=== PATIENT | female | born 1970 | race Caucasian/White ===

== ENCOUNTER 2022-05-10 14:32 | Emergency (ER) | payer MEDICAID, SELFPAY ==
[2022-05-10 14:41] VITALS: BP 152/102; PULSE 110; RESP 18; TEMP 36.3; O2SAT 97; BMI 24.0
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
== END 2022-05-10 15:30 | disposition home or self-care (01) ==
LOC: ED 15:28
PROVIDERS: Emergency Provider Family Medicine; PCP Family Medicine
DX: M25.511 Pain in right shoulder (principal); M25.571 Pain in right ankle and joints of right foot; M54.2 Cervicalgia
CPT/HCPCS: 99283; 99284

== ENCOUNTER 2022-07-26 17:41 | Emergency (ER) | payer MEDICAID, SELFPAY ==
[2022-07-26 17:49] VITALS: BP 125/87; PULSE 100; RESP 18; TEMP 35.8; O2SAT 98; BMI 27.3
--- NOTE | 2022-07-26 21:10 | ED.GENADULT ---
HPI - General Adult General Date Seen: 07/26/22 Chief complaint: Back Injury/Pain Stated complaint: Back Pain Time Seen by Provider: 07/26/22 18:03 Source: patient History of Present Illness HPI narrative: Patient is a 51-year-old woman with a history of chronic neck pain and previous chronic opioids who presents with low back pain which started a couple of hours prior to presentation. She says she was lifting up some towels when she developed pain and spasm in her low back, just to the right of her spine. She does not have any new radicular symptoms, she says she always has pain and other symptoms in her legs but that is due to her neck. She says she is due to meet with her spine surgeon on Wednesday because she has to have another surgery on her neck. She says that she took ibuprofen and Tylenol and Robaxin at home and also has lidocaine patches and Biofreeze at home and none of these were helpful for her. She is tearful, she says that none of these measures work and she is not going to be able to sleep tonight. She told the nurse that it was painful to void, but she specifically says that this is not a urinary related problem, she says she has no dysuria it just is painful to sit on the toilet to go to the bathroom, it makes her back hurt worse. Related Data Home Medications Medication Instructions Recorded Confirmed bupropion HCl 150 mg tablet,12 hr 150 mg PO BID 05/10/22 07/26/22 sustained-release epinephrine 0.3 mg/0.3 mL 05/10/22 injection, auto-injector methocarbamol 750 mg tablet 750 mg PO QID 05/10/22 07/26/22 multivitamin 1 tab PO DAILY 05/10/22 07/26/22 trazodone 100 mg tablet 100 mg PO HS 05/10/22 07/26/22 venlafaxine 150 mg 150 mg PO DAILY 05/10/22 07/26/22 capsule,extended release 24 hr venlafaxine 75 mg capsule,extended 75 mg PO DAILY 05/10/22 07/26/22 release 24 hr Allergies Allergy/AdvReac Type Severity Reaction Status Date / Time bee pollen Allergy Verified 07/26/22 18:00 Review of Systems Status of ROS: Reports: 10 or more systems reviewed and unremarkable except as noted in History and below [facility] Medical History ADHD Anxiety Cervical radiculopathy at C7 Chronic pain Depression History of alcohol abuse Migraine PTSD (post-traumatic stress disorder) Tobacco use Surgical History History of appendectomy History of cervical discectomy History of fusion of cervical spine History of hysterectomy Social History Narrative: She smokes cigarettes. She drinks 6 alcoholic beverages per week Smoking Status: Current every day smoker How often do you have a drink containing alcohol: never AUDIT-C Alcohol total score: 0 Non-prescribed substance use: denies use Exam Narrative: Exam Narrative: Vital signs as noted above. In general, an alert, nontoxic woman. Ambulatory. Head: Normocephalic, atraumatic. Eyes: Pupils are equal reactive. Extraocular movements are full. Conjunctivae are normal. ENT: Mucous membranes are moist. Throat is normal. Neck: Supple without lymphadenopathy. Heart: Regular rate and rhythm. No murmur or rub. Lungs: Clear bilaterally. No increased work of breathing, crackles or wheezes. Abdomen: Soft and nontender. No organomegaly. Back: Some tenderness in the paraspinal musculature in the right lumbar region. Extremities: Well perfused. No edema. No calf tenderness. Pulses intact. Neurologic: Patient is alert and oriented to person and place. Speech is fluent. Face is symmetric. Moves all extremities equally. Strength is 5 5 in bilateral lower extremities, sensation is intact to light touch. Gait stable. Affect: Tearful. Skin: Warm and dry. Well perfused. Const: Vital Signs, click to edit/add: Vital Signs - 24 hr 07/26/22 17:49 Temperature 96.5 F L Pulse Rate [Right Pulse Oximeter] 100 Respiratory Rate 18 Blood Pressure [Ri ght Upper Arm] 125/87 Pulse Oximetry 98 Oxygen Delivery Me thod Room Air Documenting provider has reviewed patient's vital signs: yes Course Course Hospital Course: Patient stated that her primary concern was that something might be very wrong with her back given the all the problems that she has had with her cervical spine. I did review with her that I think this is related to muscle spasm, I am not at this point concerned about something more serious such as a disc herniation given that pain is largely localized to the musculature in the right lumbar region, she does not have any radicular symptoms and does not have any neurologic changes. I recommended conservative measures including all of the things that she already has at home. She is adamant that none of these helped. I asked her what she was hoping to achieve out of seven's visit to the ER, and that she needs something different for pain. I reviewed with her that my normal management for lumbar strain is ibuprofen, Tylenol, muscle relaxers, ice, massage, and topical measures such as Biofreeze with lidocaine patches. However, given that she says she has tried all these without relief, and upon review of the prescription monitoring database shows no recent prescriptions for narcotics, I am giving her for oxycodone. I have explained to her that if she and her primary doctor have an arrangement where in the use narcotics for muscular back pain she can discuss that further with her regular clinic. As narcotics are not part of my normal treatment plan, I am not willing to provide any further from the emergency department. Follow-up with spine surgeon as planned this week, primary care as needed for further pain management. Vital Signs Vital signs: Initial Vital Signs Temperature 96.5 F L 07/26/22 17:49 Temperature Source Temporal Artery Scan 07/26/22 17:49 Pulse Rate 100 07/26/22 17:49 Respiratory Rate 18 07/26/22 17:49 Blood Pressure 125/87 07/26/22 17:49 Blood Pressure Mean 99 07/26/22 17:49 Blood Pressure Position Sitting 07/26/22 17:49 Pulse Oximetry 98 07/26/22 17:49 Oxygen Delivery Method 07/26/22 17:49 Vital Signs Temperature 96.5 F L 07/26/22 17:49 Pulse Rate 100 07/26/22 17:49 Respiratory Rate 18 07/26/22 17:49 Blood Pressure 125/87 07/26/22 17:49 Pulse Oximetry 98 07/26/22 17:49 Oxygen Delivery Method 07/26/22 17:49 Temperature 96.5 F L 07/26/22 17:49 Pulse Rate 100 07/26/22 17:49 Respiratory Rate 18 07/26/22 17:49 Blood Pressure 125/87 07/26/22 17:49 Pulse Oximetry 98 07/26/22 17:49 Oxygen Delivery Method 07/26/22 17:49 Discharge Plan Discharge Clinical Impression: Strain of lumbar region Patient Disposition: Home, Self-Care Condition: Stable Instructions: Back Pain (ED) Additional Instructions: Continue current medications. Oxycodone if needed tonight. Follow-up with your spine surgeon as planned. If you need further pain management for your low back, talk with your regular doctor. Return for new weakness or numbness, bowel or bladder changes. Prescriptions: No Action bupropion HCl 150 mg tablet sustained-release 12 hr 150 mg PO BID venlafaxine 75 mg capsule,extended release 24hr 75 mg PO DAILY venlafaxine 150 mg capsule,extended release 24hr 150 mg PO DAILY methocarbamol 750 mg tablet 750 mg PO QID trazodone 100 mg tablet 100 mg PO HS epinephrine 0.3 mg/0.3 mL auto-injector multivitamin Tablet 1 tab PO DAILY Follow Up/Referrals: Becky Laughlin MD [Primary Care Provider] - Stand Alone Forms: [facility] Info Instructions
== END 2022-07-26 18:42 | disposition home or self-care (01) ==
PROVIDERS: Emergency Provider Emergency Medicine; PCP Family Medicine
DX: S39.012A Strain of muscle, fascia and tendon of lower back, initial encounter (principal); X50.0XXA Overexertion from strenuous movement or load, initial encounter
CPT/HCPCS: 99283; 99284

== ENCOUNTER 2022-08-01 22:22 | Emergency (ER) | payer MEDICAID, SELFPAY ==
[2022-08-01 22:39] VITALS: BP 140/91; PULSE 101; RESP 20; TEMP 36.7; O2SAT 95; BMI 24.0
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
--- OUTSIDE RECORDS SUMMARY | 2022-08-01 23:23 | XMS_ITS | Clinical Summary ---
:1970 Author Organization [employer] [facility] [place] [address] Care Team Providers Name Role Phone Becky Laughlin MD Primary Care Provider Allergies Active Allergy Reactions Severity Noted Date Comments Venom-Honey Bee Anaphylaxis High 09/02/2012 Itraconazole Rash 06/20/2010 Medications Medication Sig Dispensed Refills Start End Date Status Date EPINEPHRINE Inject 0 Active (EPIPEN 2-JASON IM) intramuscular each time if needed. buPROPion Take 1 Tablet 270 Tablet 0 Activ e (WELLBUTRIN) 100 (100 mg) by mouth 2 mg three times tabletIndications daily. Further : Major refills will be depressive prescribed during disorder, an appointment recurrent, moderate (HC) venlafaxine Take 1 Capsule 90 Capsule 3 Ac tive (EFFEXOR XR) 150 (150 mg) by mouth 2 mg once daily with Extended-Release evening meal. capsuleIndication s: Major depressive disorder, recurrent, moderate (HC), Posttraumatic stress disorder, Generalized anxiety disorder venlafaxine Take 1 Capsule 90 Capsule 3 Ac tive (EFFEXOR XR) 75 (75 mg) by mouth 2 mg cp24 once daily with a Extended-Release meal. capsuleIndication s: Major depressive disorder, recurrent, moderate (HC), Posttraumatic stress disorder, Generalized anxiety disorder traZODone Take 1 Tablet 90 Tablet 3 Active (DESYREL) 100 mg (100 mg) by mouth 2 tabletIndications at bedtime if : Major needed for Sleep. depressive disorder, recurrent, moderate (HC), Posttraumatic stress disorder, Generalized anxiety disorder methocarbamoL Take 1 Tablet 120 Tablet 0 A ctive (ROBAXIN) 750 mg (750 mg) by mouth 2 tabletIndications four times daily. : Cervical radiculopathy at C7, Chronic pain syndrome, Tension vascular headache predniSONE 0 Active (DELTASONE) 20 mg 2 tablet naloxone (Narcan) Inhale 1 [place] 2 Each 0 0 Discontinued 4 mg/actuation into affected 1 ( *Med nasal nostril(s) each comp lete/Regime sprayIndications: time if needed n Opioid use for Patient Diff co mplete/Level To Arouse or Resp of care change) Rate < 8 / min. Additional doses may be given every 2 to 3 minutes until emergency medical assistance arrives. multivitamin Take 1 Tablet by 0 07/31/20 Discontinued (MVI) tablet mouth once daily. 2 22 (*Med complete/R egime n complete/L evel of care ch jeimy) methocarbamoL Take 1 Tablet 120 Tablet 0 07/17/20 D iscontinued (ROBAXIN) 750 mg (750 mg) by mouth 2 22 (Reorder tabletIndications four times daily. (E-cancel not : Cervical sent)) radiculopathy at C7, Chronic pain syndrome, Tension vascular headache Active Problems Problem Noted Date Posttraumatic stress disorder 05/05/2022 Hyperhidrosis 04/24/2022 Continuous cannabis use which she says helps her neck and back pain 04/24/2022 Alcohol use disorder, mild, abuse 04/24/2022 Controlled substance agreement signed 07/30/2021 Chronic pain syndrome 07/19/2019 Hypocalcemia 04/03/2019 Open bimalleolar fracture, right, type I or II, with r outine healing, 04/01/2019 subsequent encounter Overview: Last Assessment & Plan: 48 y.o. female 9 weeks s/p I&D, ORIF rig ht ankle. Patient stable and doing well. -WBAT RLE -Wean from crutches as tolerated -Updated physical therapy orders -Work on ROM of the right ankle -Rest, ice, elevate, and OTC pain medica tion as needed -Follow up in 6 weeks Frequent PVCs 06/09/2018 Overview: Status post ablation for PVCs arising fr om a force deep to the anterior septal right ventricular outflow tract by Dr. Degroot March 2018. January 2021 monitor 6.8% PVC burden. Has been on Toprol XL 25 mg daily. Does not want additional medications 03/19/2021 status post repeat ablation for 2 separate PVCs from the LV. Toprol XL reduced to 12.5 mg PO daily S/P cervical spinal fusion 12/09/2017 Controlled substance agreement signed 04/28/2017 Overview: [facility] 04/26/17 Rashmi Mckeon, A................04/28/2017 3 :11 PM 90 day reminder has been signed by pt WILMAN II (vulvar intraepithelial neoplasia II) 6 Cervical radiculopathy at C7 08/29/2012 Major depressive disorder, recurrent, moderate 010 Tobacco use disorder 03/14/2008 Migraine, unspecified, without mention of intractable migraine without 03/14/2008 mention of status migrainosus History of attention deficit hyperactivity disorder (A DHD) 01/31/2007 Generalized anxiety disorder 01/31/2007 Resolved Problems Problem Noted Date Resolved Date Pain medication agreement 10/30/2013 04/28/2017 Overview: Pain contract initiated with Rashmi ayala NP at [facility] on 10/25/2013. Tierra Bernal .................... 10/30 4:09 PM Major depressive disorder, recurrent episode, in partial or 01/31/2007 05/05/2022 unspecified remission Encounters Date Type Specialty Care Team Description 07/31/2022 Office Visit Ashley Hinojosa Follow Up (EM G, CT ) Randi Donahue Eric John, MATEUS 07/30/2022 Travel 07/22/2022 Orders Only Clifton Bailey, <No scans attached> MATEUS 07/22/2022 Telephone Clifton Bailey, EMG resul ts PA 07/17/2022 Telemedicine Josh Mtz MD Failed Katie ointment 07/17/2022 Telephone Nelli Grayson, Refill Req uest HELICOPTER REPAIRER (Methocarbamol 750mg ) 07/16/2022 Orders Only Scanner <No scans attac hed> 07/01/2022 Telephone Clifton Bailey PA 06/29/2022 Telemedicine Jose Daniel Mckeon, Telehealt h; Failed PhD, LP Appointment 06/19/2022 Hospital Encounter Clifton Bailey, Pse udoarthrosis of PA cervical spine, initial encounter (HC) 06/19/2022 Telemedicine Josh Mtz MD Telehealth (); Medication Ana gement (Effexor and Tr azodone from PCP) 06/18/2022 Telemedicine Jose Daniel Mckeon, Psycholog ical Testing; PhD, LP Telehealth 06/18/2022 Travel 06/12/2022 Procedure Only Tyrese Templeton Procedure (ONB & TPIs) MD Cathie 06/12/2022 Hospital Encounter Tyrese Templeton MD 06/12/2022 Travel 06/12/2022 Telephone Josh Mtz MD Late Melvin reddy Appointment 06/11/2022 Telemedicine Josh Mtz MD Late Cance l Appointment 06/10/2022 Travel 06/09/2022 Telephone Nelli Grayson, Refill Req uest HELICOPTER REPAIRER (Methocarbamol 750mg ) 06/09/2022 Orders Only Clifton Bailey, <No scans attached> PA 06/04/2022 Ancillary Procedure 06/04/2022 Ancillary Procedure 06/04/2022 Telephone Clifton Bailey, Follow Up PA 06/03/2022 Office Visit Clifton Bailey, Consult ( Spine ) PA 06/03/2022 Travel 06/02/2022 Travel 05/26/2022 Telephone Ashley Hinojosa Questions Godfrey, Randi 05/26/2022 Telephone Ashley Hinojosa Concerns [facility] Procedure Only SaTyrese monteiro Procedure; Right Cathie MD shoulder,ONB wi th sedation 05/19/2022 Hospital Encounter Tyrese Templeton MD 05/19/2022 Telephone Tyrese Templeton Prior Author yana Brand MD (Patient wants to schedule should er, ONB, and TPI injecti ons. Please advise. ) 05/19/2022 Travel 05/18/2022 Office Visit Diane Paul Shoulder Pain/ problem MD Demetrice (HELICOPTER REPAIRER, right shou lder) 05/18/2022 Travel 05/05/2022 Telemedicine Josh Mtz MD Medication Management (Per METAL BONDING ASSEMBLER Addera ll XR 20mg #31 last sold ); Telehealth 05/01/2022 Telemedicine Jose Daniel Mckeon, Telehealt h; Mental Health PhD, LP Intake 05/01/2022 E-Visit Mychart, Provider 05/01/2022 E-Visit Mychart, Provider 05/01/2022 Travel from Last 3 Months Immunizations Name Administration Dates Next Due Hepatitis B (Peds) 12/14/2002, 07/06/2002, 05/19/2002 Influenza A (H1N1), Live Intranasal 09/17/2009 Influenza Virus, Unspecified 09/23/2019, 07/26/2012, 011, 08/25/2010, 11/23/2008 Influenza, IIV3 (Age 6-35 mos) 07/26/2012, 07/29/2011 Influenza, IIV3 (Age >=3 years) 10/02/2010 Influenza, IIV4 11/26/2017, 11/18/2016 Influenza, Injectable, Mdck, 09/23/2019 Quadrivalent, W/preservative Influenza,LAIV4 Live Intranasal 07/12/2013 (Flumist) Td (Age >=7 Years) 12/02/2010 Td, Preservative Free (age >= 7 08/16/2002 Years) Tdap 03/31/2019, 12/03/2010 Family History Medical History Relation Name Comments Good Health Father Good Health Mother Cancer-breast Other maternal and pat ernal cousins Other Other paternal cousin s with ADD, anxiety and depression Cancer-breast Paternal Aunt Cancer-breast Paternal Grandmother Relation Name Status Comments Father Mother Other Paternal Aunt Paternal Grandmother Social History Tobacco Use Types Packs/Day Years Used Date Current Every Day Smoker Cigarettes 1 Edi t: 12/10/2015 Smokeless Tobacco: Never Used Tobacco Cessation: Ready to Quit: No; Co unseling Given: Yes Comments: half to a full pack a day Alcohol Use Standard Drinks/Week Comments Yes 6 (1 standard drink = 0.6 oz pure alcoho l) occ. Alcohol Habits Answer Date Recorded How often do you have a drink containing alcohol? 2-3 times a week 08/03/2019 How many drinks containing alcohol do you have on a 1 or 2 08/03/2019 typical day when you are drinking? How often do you have six or more drinks on one Never 08/03/2019 occasion? Comment: occ. 06/03/2022 Education Answer Date Recorded What is the highest level of school Associate degree: juan mclaughlin, 04/24/2022 you have completed or the highest technical, or vocational p lise degree you have received? 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 Obstetrics History Para Term AB IAB SAB Ectopic Multiple Living Live Births 1 1 1 1 Date Outcome GA Total Labor/2nd/3rd Weight Sex Delivery Anes PTL Pilar A 1 A5 Name Clin Labor Term Last Filed Vital Signs Vital Sign Reading Time Taken Comments Blood Pressure 132/96 07/31/2022 2:38 PM CDT Pulse 94 07/31/2022 2:38 PM CDT Temperature 36.6 ??C (97.9 ??F) 07/31/2022 2:38 PM CDT Respiratory Rate 16 06/12/2022 12:59 PM CDT Oxygen Saturation 98% 06/12/2022 12:59 PM CDT Inhaled Oxygen Concentration - - Weight 63.5 kg (140 lb) 07/31/2022 2:38 PM CDT Height 162.6 cm (5' 4) 07/31/2022 2:38 PM CDT Body Mass Index 24.03 07/31/2022 2:38 PM CDT Plan of Treatment Health Maintenance Due Date Last Done Comments COVID-19 vaccine series (#1) 04/18/1973 Pneumococcal series for age 19-64 1978 (1 - PCV) Hepatitis C screening for age 0110/19/1990 18-79 Colonoscopy through age 75 2017 Influenza for age 9-49 06/11/2022 09/23/2019, 09/23/2019, 11/26/2017, Additional history exists Mammogram for age 45-75 12/11/2022 12/11/2021 Depression screening for age 12+ 06/19/2023 06/19/2022, 05/2022, 06/12/2022, Additional history exists BMI (ht and wt on same day) for 07/31/2023 07/31/2022, 05/12, age 18+ 10/24/2021, Additional history exists Lipids for age 45-75 10/24/2026 10/24/2021 Tetanus booster 03/31/2029 03/31/2019, 12/03/2010, 12/02/2010, Additional history exists Tdap Completed 03/31/2019, 12/03/2010 Medical Devices Implanted Type Area Web Site Project Manager Device Shelf Model / Identifier Expiration Serial / Date Lot Screw Slf Drilling 4.0x13 Debi - [id number] N/A: Cervical [id number] / Implanted: Qty: 4 on 09/02/2012 by Ashley Hinojosa MBC at [facility] Vertebrae / Procedures Procedure Name Priority Date/Time Associated Diagnosis Comme nts EMG Routine 07/16/2022 12:00 Paresthesias Results for this AM CDT procedure are i n the results section. SCAN-ELECTROMYOGRA 07/16/2022 12:00 Resul ts for this M EMG AM CDT procedure are i n the results section. CT SPINE CERVICAL Routine 06/19/2022 12:27 Pseudoarthrosis of Results for this WO PM CDT cervical spine, initial proc edure are in encounter (HC) the results section. XR SPINE CERVICAL [place] 06/04/2022 8:21 AM Cervical myelopat hy Results for this 4 OR 5 VIEWS CDT (HC) procedure are i n the results section. MR SPINE CERVICAL [place] 06/04/2022 7:55 AM Cervical myelopat hy Results for this WO CDT (HC) procedure are i n the results section. [employer] [facility] Routine 05/19/2022 7:21 AM IMAGE STORAGE CDT from Last 3 Months Results SCAN-ELECTROMYOGRAM EMG (07/16/2022 12:00 AM CDT) Narrative This result has an attachment that is no t available. Scanner OTHER EMG (07/16/2022 12:00 AM CDT) Narrative This result has an attachment that is no t available. [facility] ORD CT SPINE CERVICAL WO (06/19/2022 12:27 PM CDT) Anatomical Region Laterality Modality CERVICAL SPINE, NECK, Spine Computed Aaron ography Specimen (Source) Anatomical Collection Method Collection Time Re ceived Time Location / / Volume Laterality 06/19/2022 12:52 PM CDT Narrative 06/19/2022 12:52 PM CDT For Patients: ??As a result of the Cures Act, medical imaging exams and procedure report s are released immediately into your [facility] medical record. ??You may view this report before your referring provider. ??If you have questions, please contact your health care provider. 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 Comparison: Cervical spine x-ray and MRI 06/04/2022 Findings: Neutral: Straightening of the normal alyx dosis. Minimal grade 1 retrolisthesis at C4-5. Flexion: Minimal grade 1 anterolisthesis at C3-4 and C4-5. Extension: Minimal retrolisthesis at C4- 5. Postop changes: Interbody fusion at C5-6 , with anterior plate and screw fixation and interbody spacer at C6-7. Fixation hardware is unremarkable. No ev idence of acute fracture. Mild degenerative disc changes without e vidence of critical spinal canal stenosis. Uncovertebral/facet arthropathy contribute to likely moderate right foraminal stenosis at C5-6. No suspicious findings in the prevertebr al or paraspinal soft tissues. Included posterior fossa is unremarkable . Centrilobular emphysematous changes are noted in the included lungs. Impression: 1. Upon cervical flexion, minimal grade 1 anterolisthesis at C3-4, resolving in neutral/extension. 2. Straightening of the normal cervical lordosis, with subtle grade 1 retrolisthesis at C4-5, unchanged with flexion/extension. 3. Anterior cervical spinal fusion flores es. No evidence of acute osseous abnormality. 4. Cervical spondylosis with moderate ri ght foraminal stenosis at C5-6. Please note that all CT scans at this [facility] use dose modulation, iterative reconstruction, and/or weight-based dosing when appropriate to reduce radiation dose to as low as reasonably achievable. Dictated by Vera Duque MD @ 06/19/2022 12 :52:47 PM (Electronically Signed) Procedure Note Vera Duque, DO - 06/19/2022Forma tting of this note might be different from the original. For Patients: As a result of the ntury Cures Act, medical imaging exams and procedure reports are released immediately into your electronic medical record. You may view this report before your referring provider. If you have questions, please contact [facility] health care provider. 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 Comparison: Cervical spine x-ray and MRI 06/04/2022 Findings: Neutral: Straightening of the normal alyx dosis. Minimal grade 1 retrolisthesis at C4-5. Flexion: Minimal grade 1 anterolisthesis at C3-4 and C4-5. Extension: Minimal retrolisthesis at C4- 5. Postop changes: Interbody fusion at C5-6 , with anterior plate and screw fixation and interbody spacer at C6-7. Fixation hardware is unremarkable. No ev idence of acute fracture. Mild degenerative disc changes without e vidence of critical spinal canal stenosis. Uncovertebral/facet arthropathy contribute to likely moderate right foraminal stenosis at C5-6. No suspicious findings in the prevertebr al or paraspinal soft tissues. Included posterior fossa is unremarkable . Centrilobular emphysematous changes are noted in the included lungs. Impression: 1. Upon cervical flexion, minimal grade 1 anterolisthesis at C3-4, resolving in neutral/extension. 2. Straightening of the normal cervical lordosis, with subtle grade 1 retrolisthesis at C4-5, unchanged with flexion/extension. 3. Anterior cervical spinal fusion flores es. No evidence of acute osseous abnormality. 4. Cervical spondylosis with moderate ri ght foraminal stenosis at C5-6. Please note that all CT scans at this [facility] use dose modulation, iterative reconstruction, and/or weight-based dosing when appropriate to reduce radiation dose to as low as reasonably achievable. Dictated by Vera Duque MD @ 06/19/2022 12 :52:47 PM (Electronically Signed) [facility] CT XR SPINE CERVICAL 4 OR 5 VIEWS (06/04/2022 8:21 AM CDT) Anatomical Region Laterality Modality Spine, CERVICAL SPINE Computed Radiograp hy Specimen (Source) Anatomical Collection Method Collection Time Re ceived Time Location / / Volume Laterality 06/04/2022 8:21 AM CDT Impressions 06/04/2022 8:49 AM CDT Straightening of the usual cervical lordosis with otherwise normal alignment. No spondylolisthesis on flexion or extension views. Interbody fusion device at C5- C6 and C6-C7 with anterior fixation plate at C6-C7. Solid osseous fusion of the C6 -C7 disc space. Mild disc space narrowing at C3-C4 and C4-C5 with marginal osteophytes. The prevertebral soft tissues and visualized lung apices are unremarkable. Narrative 06/04/2022 8:49 AM CDT For Patients: As a result of the Cures Act, medical imaging exams and procedure reports are released immediately into your [facility] medical record. You may view this report before your referring provider. If you have questions, please contact your health care provider. EXAM: XR SPINE CERVICAL 4 OR 5 VIEWS LOCATION: [facility] DATE/TIME: 06/04/2022 8:21 AM INDICATION: Cervical Myelopathy (hc). COMPARISON: MRI cervical spine 2. TECHNIQUE: CR Cervical Spine. Procedure Note Pawan Starsk MD - 06/04/20 22 For Patients: As a result of the Cures Act, medical imaging exams and procedure reports are released immediately into your electronic medical record. You may view this report before your referring provider. If you have questions, please contact [facility] health care provider. EXAM: XR SPINE CERVICAL 4 OR 5 VIEWS LOCATION: [facility] DATE/TIME: 06/04/2022 8:21 AM INDICATION: Cervical Myelopathy (hc). COMPARISON: MRI cervical spine 2. TECHNIQUE: CR Cervical Spine. IMPRESSION: Straightening of the usual cervical lord osis with otherwise normal alignment. No spondylolisthesis on flexion or extension views. Interbody fusion device at C5- C6 and C6-C7 with anterior fixation plate at C6-C7. Solid osseous fusion of the C6-C7 disc s pace. Mild disc space narrowing at C3-C4 and C4-C5 with marginal osteophytes. The prevertebral soft tissues and visualized lung apices are unremarkable. [facility] MR SPINE CERVICAL WO CONTRAST (06/04/2022 7:55 AM CDT) Anatomical Region Laterality Modality Spine, CERVICAL SPINE Magnetic Resonance Specimen (Source) Anatomical Collection Method Collection Time Re ceived Time Location / / Volume Laterality 06/04/2022 7:55 AM CDT Impressions 06/04/2022 9:41 AM CDT 1. ??Slight progression of degenerative changes in the cervical spine above the existing anterior interbody fusion levels C5-C7, with hardware C6-C7 anteriorly. 2. ??Interval development of very low-gr tom 1 mm retrolisthesis C3-C4 and disc bulging with very shallow central disc extrusion at this level contributes to mild spinal canal compromise without foraminal narrowing. 3. ??Decreased size of C4-C5 disc hernia tion from prior study without spinal canal narrowing at this level. 4. ??There is no severe spinal stenosis or severe foraminal narrowing. 5. ??No abnormal intramedullary signal. 6. ??Please see above for details and fu ll description. Narrative 06/04/2022 9:41 AM CDT For Patients: As a result of the 21st Century Cures Act, medical imaging exams and procedure reports are released immediately into your [facility] medical record. You may view this report before your referring provider. If you have questions, please contact your health care provider. EXAM: MR SPINE CERVICAL WO LOCATION: [facility] DATE/TIME: 06/04/2022 7:55 AM INDICATION: Cervical myelopathy (hc). COMPARISON: 12/12/13 MRI, 11/24/2013 plain film imaging. TECHNIQUE: MRI Cervical Spine without IV contrast. FINDINGS: Satisfactory vertebral body height. 1 mm retrolisthesis suggested C3-C4 new from previous study. No high-grade subluxation. Otherwise satisfactory alignment. Redemonstration of postoperative changes of anterior fusion with interbody fusions C 5-C6, C6-C7, as well as plate/body screw fixation anteriorly with associated artifact at the C6-C7 level. No abnormal intramedullary signal. No co rd expansive changes are noted. Posterior fossa structures shows no acute abnormality. Satisfactory position of the cerebellar tonsils. Chronic ischemic change ce ntral pontine deep white matter. Vertebr obasilar flow voids are intact. Sella and sphenoid sinus are unremarkable. No evidence for blood products in the posterior fossa or spinal canal with some mineral ization in the region of the pineal rece ss. No evidence for mass, adenopathy or focal fluid collections within the neck soft tissues. Edger Tailer nonenlarged level II lymph nodes up to 12-13 mm. Mini mal fluid left mastoid air cells inferio rly. Minimal scarring/atelectasis in the upper lungs. Craniovertebral junction and C1-C2: Mild degenerative changes without canal stenosis. C2-C3: Normal disc height. No herniation . Normal facets. No spinal canal or neural foraminal stenosis. C3-C4: Low-grade retrolisthesis suggeste d new from previous study with generalized disc bulging and shallow broad-based central disc extrusion with subtle focal annular tear/disruption in the right para central zone. Mild spinal stenosis is pr esent without foraminal compromise. Facet joints are normal. C4-C5: Moderate loss of disc height. Gen eralized disc bulge. Mild flattening of the ventral thecal sac and shallow broad-based central disc protrusion with annular disruption. No spinal stenosis. No for aminal compromise. Facet joints are sati sfactory. C5-C6: Fusion changes anteriorly. Osteop hytes right foraminal and far lateral zone with mild right foraminal stenosis suggested. No spinal canal or left-sided foraminal narrowing. Facet joints are minimally hypertrophic. C6-C7: Fusion changes anteriorly. Osteop hytes in the central and right paracentral zone. No canal stenosis or foraminal narrowing. Satisfactory facet joint appearance. C7-T1: Normal disc height. No herniation . Normal facets. No spinal canal or neural foraminal stenosis. Procedure Note Lars Cha MD - 06/04/2022For matting of this note might be different from the original. For Patients: As a result of the ntury Cures Act, medical imaging exams and procedure reports are released immediately into your electronic medical record. You may view this report before your referring provider. If you have questions, please contact yo health care provider. EXAM: MR SPINE CERVICAL WO LOCATION: [facility] DATE/TIME: 06/04/2022 7:55 AM INDICATION: Cervical myelopathy (hc). COMPARISON: 12/12/13 MRI, 11/24/2013 plain film imaging. TECHNIQUE: MRI Cervical Spine without IV contrast. FINDINGS: Satisfactory vertebral body height. 1 mm retrolisthesis suggested C3-C4 new from previous study. No high-grade subluxation. Otherwise satisfactory alignment. Redemonstration of postoperative changes of anterior fusion with interbody fusions C5-C6, C6-C7, as well as plate/body screw fixation anteriorly with associated artifact at the C6-C7 level. No abnormal intramedullary signal. No co rd expansive changes are noted. Posterior fossa structures shows no acute abnormality. Satisfactory position of the cerebellar tonsils. Chronic ischemic change central pontine deep white matter. Vertebrobasil ar flow voids are intact. Sella and sphenoid sinus are unremarkable. No evidence for blood products in the posterior fossa or spinal canal with some mineralization in the region of the pineal recess. No evidence for mass, adenopathy or focal fluid collections within the neck soft tissues. Edger Tailer nonenlarged level II lymph nodes up to 12-13 mm. Minimal fluid left mastoid air cells inferiorly. Minimal scarring/atelectasis in the upper lungs. Craniovertebral junction and C1-C2: Mild degenerative changes without canal stenosis. C2-C3: Normal disc height. No herniation . Normal facets. No spinal canal or neural foraminal stenosis. C3-C4: Low-grade retrolisthesis suggeste d new from previous study with generalized disc bulging and shallow broad-based central disc extrusion with subtle focal annular tear/disruption in the right paracentral zone. Mild spinal stenosis is present without foraminal compromise. Facet joints are normal. C4-C5: Moderate loss of disc height. Gen eralized disc bulge. Mild flattening of the ventral thecal sac and shallow broad-based central disc protrusion with annular disruption. No spinal stenosis. No foraminal compromise. Facet joints are satisfactor y. C5-C6: Fusion changes anteriorly. Osteop hytes right foraminal and far lateral zone with mild right foraminal stenosis suggested. No spinal canal or left-sided foraminal narrowing. Facet joints are minimally hypertrophic. C6-C7: Fusion changes anteriorly. Osteop hytes in the central and right paracentral zone. No canal stenosis or foraminal narrowing. Satisfactory facet joint appearance. C7-T1: Normal disc height. No herniation . Normal facets. No spinal canal or neural foraminal stenosis. IMPRESSION: 1. Slight progression of degenerative ch anges in the cervical spine above the existing anterior interbody fusion levels C5-C7, with hardware C6-C7 anteriorly. 2. Interval development of very low-grad e 1 mm retrolisthesis C3-C4 and disc bulging with very shallow central disc extrusion at this level contributes to mild spinal canal compromise without foraminal narrowing. 3. Decreased size of C4-C5 disc herniati on from prior study without spinal canal narrowing at this level. 4. There is no severe spinal stenosis or severe foraminal narrowing. 5. No abnormal intramedullary signal. 6. Please see above for details and full description. [facility] IGNACIO MR from Last 3 Months Insurance Payer Benefit Plan / Subscriber ID Effective Dates Phone Addre ss Type Group STEVE WILSON MA [id number] 2021-Present [address] [place] [address] (Home) [place] [address] Advance Directives Latest Code Status on File Code Status Date Activated Date Inactivated Comments Full Code 03/19/2021 9:59 AM 03/20/2021 12:07 PM Code Status Discussion: Other (specify in comments): Full Code 01/28/2016 7:35 AM 01/28/2016 2:14 PM Full Code 09/02/2012 5:15 PM 09/03/2012 2:23 PM Full Code 09/02/2012 11:32 AM 09/02/2012 5:15 PM Care Teams [employer] Relationship Specialty Start Date End Date Becky Laughlin MD PCP - General Family Practice 07/30/21 [address] [place] [address]
[2022-08-01] MEDS: KETOROLAC 30 MG/ML inj IM (23:44)
== END 2022-08-01 23:48 | disposition home or self-care (01) ==
PROVIDERS: Emergency Provider Family Medicine
DX: G89.29 Other chronic pain (principal); M54.2 Cervicalgia
CPT/HCPCS: 96372; 99282; 99283; J1885

== ENCOUNTER 2022-11-20 13:48 | Emergency (ER) | payer MEDICAID, SELFPAY ==
[2022-11-20 14:02] VITALS: BP 132/94; PULSE 104; RESP 16; TEMP 36.9; BMI 23.2
--- NOTE | 2022-11-20 14:28 | ED_ITS ---
HPI - General Adult General Chief complaint: GI Bleed Stated complaint: Menstrual bleeding Time Seen by Provider: 11/20/22 13:57 Source: patient Mode of arrival: ambulatory Limitations: no limitations History of Present Illness HPI narrative: 52-year-old female coming in today concerned about rectal bleeding. States that around 330 in the morning she had loose stools. She then had another episode of loose stools later in the morning and when she looked on the toilet paper there is a little bit of blood on the toilet paper as well as about a nickel sized blood clot in the toilet. She denies any dysuria, increased frequency or urgency. She states that she has suprapubic abdominal discomfort. She denies fevers or chills. She has not had a good appetite today. She states that she had rectal bleeding in the past and is status post a colonoscopy then which did not find anything abnormal. She is not dizzy or lightheaded. She denies chest pain or diaphoresis. She states that she does have a history of hemorrhoids. She is concerned because she feels very dehydrated today and she is not sure why. Related Data Home Medications Medication Instructions Recorded Confirmed bupropion HCl 150 mg tablet,12 hr 150 mg PO BID 05/10/22 11/20/22 sustained-release epinephrine 0.3 mg/0.3 mL 0.3 mg 05/10/22 injection, auto-injector methocarbamol 750 mg tablet 750 mg PO QID 05/10/22 11/20/22 multivitamin 1 tab PO DAILY 05/10/22 11/20/22 trazodone 100 mg tablet 100 mg PO HS 05/10/22 11/20/22 venlafaxine 150 mg 150 mg PO DAILY 05/10/22 11/20/22 capsule,extended release 24 hr venlafaxine 75 mg capsule,extended 75 mg PO DAILY 05/10/22 11/20/22 release 24 hr Allergies Allergy/AdvReac Type Severity Reaction Status Date / Time bee pollen Allergy Verified 11/20/22 14:13 Review of Systems Status of ROS: Reports: 10 or more systems reviewed and unremarkable except as noted in History and below PFSH PFSH Medical History ADHD Anxiety Cervical radiculopathy at C7 Chronic pain Depression History of alcohol abuse Migraine PTSD (post-traumatic stress disorder) Tobacco use Surgical History History of appendectomy History of cervical discectomy History of fusion of cervical spine History of hysterectomy Social History Narrative: She smokes cigarettes. She drinks 6 alcoholic beverages per week Smoking Status: Current every day smoker What tobacco products do you use: cigarettes Do you use any of these nicotine containing products: None Second hand tobacco smoke exposure: No How often do you have a drink containing alcohol: never AUDIT-C Alcohol total score: 0 Non-prescribed substance use: marijuana (any form) service: No Exam Narrative: Exam Narrative: Well-nourished well-developed patient, very anxious. Alert and oriented x3. An swers questions appropriately. Patient speaks in full sentences without needing to catch their breath. HEENT: Normocephalic atraumatic. Pupils are equally round reactive to light. Extraocular muscles are intact. Conjunctivae are moist without any icterus noted. Moist mucous membranes. Posterior pharynx is normal. Neck is soft without any lymphadenopathy or thyromegaly. No masses are appreciated. Cardiovascular: Heart is regular rate and rhythm S1 and S2 are present without any murmurs. Lungs: Clear to auscultation bilaterally no wheezes rhonchi or rales are appreciated. Patient takes deep breaths without any discomfort. Abdomen: Soft and nontender nondistended with normal bowel sounds. No guarding or rebound. No masses or organomegaly appreciated. Extremities: Bilateral lower extremities are without edema. Normal DP and PT pulses. Skin: Well perfused without any obvious rashes. Rectal exam: Patient does have 2 small hemorrhoids present that are non thrombosed or actively bleeding. She has normal rectal tone. There is no stool or blood in the rectal vault. Because of this, I was not able to do a stool guaiac test. Const: Vital Signs, click to edit/add: Vital Signs - 24 hr 11/20/22 14:02 11/20/22 15:50 Temperature 98.4 F Pulse Rate [Right Pulse Oximeter] 104 H 86 Respiratory Rate 16 16 Blood Pressure [Ri ght Upper Arm] 132/94 H 126/78 Pulse Oximetry 98 Oxygen Delivery Me thod Room Air Course Course Hospital Course: Blood work was unremarkable aside from a slightly elevated white cell count. However she continued to have abdominal pain. I did discuss with her that I did not feel an abdominal CT scan would be a good option for her given her relatively normal blood work today, however patient felt this would be very important to get done today and requested we go ahead despite our discussion of risks and benefits including increased radiation exposure and cancer risk. Abdominal CT shows colitis. UA did have 2-5 RBCs, did have a discussion with the patient and she is certain that the blood she saw on the toilet paper today was rectal. Of note, patient was with us for about 6 hours and did not have any rectal bleeding while she was here. Vital Signs Vital signs: Initial Vital Signs Temperature 98.4 F 11/20/22 14:02 Temperature Source Temporal Artery Scan 11/20/22 14:02 Pulse Rate 104 H 11/20/22 14:02 Respiratory Rate 16 11/20/22 14:02 Blood Pressure 132/94 H 11/20/22 14:02 Blood Pressure Mean 106 11/20/22 14:02 Blood Pressure Position Sitting 11/20/22 14:02 Vital Signs Temperature 98.4 F 11/20/22 14:02 Pulse Rate 104 H 11/20/22 14:02 Respiratory Rate 16 11/20/22 14:02 Blood Pressure 132/94 H 11/20/22 14:02 Temperature 98.4 F 11/20/22 14:02 Pulse Rate 86 11/20/22 15:50 Respiratory Rate 16 11/20/22 15:50 Blood Pressure 126/78 11/20/22 15:50 Pulse Oximetry 98 11/20/22 15:50 Oxygen Delivery Method 11/20/22 15:50 Medical Decision Making MDM Narrative Medical decision making narrative: 52-year-old female with colitis. We discussed ibuprofen, heating pad to the abdomen is needed. We discussed reasons to return to the ER including fever, worsening pain, increased rectal bleeding or vomiting. I do want her to follow up with primary care provider in the next 10-14 days and get a colonoscopy scheduled. Patient was agreeable had no other questions. Medical Records Medical records reviewed: Yes I reviewed the patient's medical records Lab Data Lab results reviewed: Yes I reviewed the patient's lab results Labs: Lab Results 11/20/22 11/20/22 11/20/22 Range/Units 10:43 10:43 14:35 WBC 12.71 H (4.50-11.00) K/uL RBC 4.80 (4.00-5.20) m/uL Hgb 14.5 (12.0-16.0) gm/dL Hct 43.0 (33.0-51.0) % MCV 90 (80-100) fL MCH 30 (26-34) pg MCHC 34 (32-36) gm/dL RDW Coeff of Debi 12.5 (11.5-15.5) % Plt Count 325 (140-440) K/uL Neut % (Auto) 69.2 (42.0-72.0) % Lymph % (Auto) 22.8 (20-44) % Hendricks % (Auto) 6.5 (0.0-11.0) % Eos % (Auto) 0.5 (0.0-7.0) % Baso % (Auto) 0.2 (0.0-3.0) % Neut # (Auto) 8.80 H (1.7-7.0) K/uL Lymph # (Auto) 2.90 (0.90-2.90) K/uL Hendricks # (Auto) 0.80 (0.00-0.90) K/UL Eos # (Auto) 0.10 (0.00-0.50) K/uL Baso # (Auto) 0.00 (0.00-0.30) K/uL ESR (2-20) mm/hr Sodium 140 (135-149) mmol/L Potassium 3.7 (3.6-5.1) mmol/L Chloride 101 (96-114) mmol/L Carbon Dioxide 32 (20-32) mmol/L BUN 12 (7-30) mg/dL Creatinine 0.6 (0.5-1.5) mg/dL Estimated Creat Clear 96.86 Estimated GFR 109 ml/min Glucose 110 (60-115) mg/dL Lactate (0.5-1.9) mmol/L Calcium 9.2 (8.4-10.6) mg/dL Total Bilirubin 0.4 (0.1-1.5) mg/dL Direct Bilirubin 0.2 (0.0-0.5) mg/dL AST 19 (12-35) U/L ALT 20 (4-35) U/L Alkaline Phosphatase 102 (40-150) U/L C-Reactive Protein 0.6 (0.5-1.0) mg/dL Total Protein 8.0 (6.0-8.3) g/dL Albumin 4.6 (3.3-5.0) g/dL Lipase 50 (23-300) U/L HCG, Qual Negative (Negative) Urine Color Yellow (Yellow) Urine Appearance Clear (Clear) Urine pH 7.0 (5.0-8.5) Ur Specific [place] 1.015 (1.000-1.030) Urine Protein Negative (Negative) Urine Glucose (UA) Negative (Negative) Urine Ketones Negative (Negative) Urine Blood Trace-lysed A (Negative) Urine Nitrite Negative (Negative) Urine Bilirubin Negative (Negative) Urine Urobilinogen 0.2 (0.2-1.0) Ur Leukocyte Esterase Negative (Negative) Urine RBC 2-5 A (0-2) Urine WBC 0-2 (0-5) Ur Squamous Epith Cells Few (None-Few) Urine Bacteria Few A (None) 11/20/22 11/20/22 11/20/22 Range/Units 14:35 14:35 14:47 WBC (4.50-11.00) K/uL RBC (4.00-5.20) m/uL Hgb (12.0-16.0) gm/dL Hct (33.0-51.0) % MCV (80-100) fL MCH (26-34) pg MCHC (32-36) gm/dL RDW Coeff of Debi (11.5-15.5) % Plt Count (140-440) K/uL Neut % (Auto) (42.0-72.0) % Lymph % (Auto) (20-44) % Hendricks % (Auto) (0.0-11.0) % Eos % (Auto) (0.0-7.0) % Baso % (Auto) (0.0-3.0) % Neut # (Auto) (1.7-7.0) K/uL Lymph # (Auto) (0.90-2.90) K/uL Hendricks # (Auto) (0.00-0.90) K/UL Eos # (Auto) (0.00-0.50) K/uL Baso # (Auto) (0.00-0.30) K/uL ESR 12 (2-20) mm/hr Sodium (135-149) mmol/L Potassium (3.6-5.1) mmol/L Chloride (96-114) mmol/L Carbon Dioxide (20-32) mmol/L BUN (7-30) mg/dL Creatinine (0.5-1.5) mg/dL Estimated Creat Clear Estimated GFR ml/min Glucose (60-115) mg/dL Lactate 1.3 (0.5-1.9) mmol/L Calcium (8.4-10.6) mg/dL Total Bilirubin Cancelled (0.1-1.5) mg/dL Direct Bilirubin Cancelled (0.0-0.5) mg/dL AST Cancelled (12-35) U/L ALT Cancelled (4-35) U/L Alkaline Phosphatase Cancelled (40-150) U/L C-Reactive Protein (0.5-1.0) mg/dL Total Protein Cancelled (6.0-8.3) g/dL Albumin Cancelled (3.3-5.0) g/dL Lipase Cancelled (23-300) U/L HCG, Qual (Negative) Urine Color (Yellow) Urine Appearance (Clear) Urine pH (5.0-8.5) Ur Specific [place] (1.000-1.030) Urine Protein (Negative) Urine Glucose (UA) (Negative) Urine Ketones (Negative) Urine Blood (Negative) Urine Nitrite (Negative) Urine Bilirubin (Negative) Urine Urobilinogen (0.2-1.0) Ur Leukocyte Esterase (Negative) Urine RBC (0-2) Urine WBC (0-5) Ur Squamous Epith Cells (None-Few) Urine Bacteria (None) Imaging Data CT scan - abdomen: Attestation: I have reviewed the pertinent imaging results. Radiologist's impression: TECHNIQUE: Multiple axial images were obtained from the diaphragm to the symphysis pubis after administration of 66 mL of Isovue 370 intravenously. Sagittal and coronal re-formatted images were obtained. COMPARISON: 06/27/2017. FINDINGS: The visualized portion of the lung bases are clear. There is a stable hemangioma in an the right lobe liver inferiorly. There is a stable cyst right lobe liver inferiorly. There is no new liver lesion seen. The spleen, pancreas, gallbladder and adrenal glands are unremarkable. There is a stable cyst in the lower pole of the right kidney. There is no new mass seen in the kidneys. There is no hydronephrosis. There is no evidence of a bowel obstruction. There are surgical clips by the cecum consistent with a previous appendectomy. There is thickening of the wall of the descending colon consistent with a colitis. The uterus is surgically absent. There is a 2.2 cm cystic structure in the left pelvis which is likely an ovarian cyst. There is no free fluid in the abdomen or pelvis. The abdominal aorta is normal in caliber. There are atherosclerotic calcifications. IMPRESSION: 1. Thickening of the wall of the descending colon consistent with a colitis. 2. 2.2 cm cyst structure left pelvis which is likely an ovarian cyst. 3. Status post hysterectomy and appendectomy. 4. Stable hemangioma and cyst in the right lobe of the liver inferiorly. 5. Right kidney cyst. Discharge Plan Discharge Clinical Impression: Colitis, Rectal bleed Patient Disposition: Home, Self-Care Condition: Stable Additional Instructions: Okay to take Tylenol as needed for abdominal discomfort. Okay to use a heating pad to abdominal wall, do not apply heat directly to skin. Return to the emergency room if you have worsening pain, fever, vomiting, increase rectal bleeding. You should follow-up with your primary care provider in the next 10- 14 days and have a colonoscopy scheduled. Prescriptions: No Action bupropion HCl 150 mg tablet sustained-release 12 hr 150 mg PO BID venlafaxine 75 mg capsule,extended release 24hr 75 mg PO DAILY venlafaxine 150 mg capsule,extended release 24hr 150 mg PO DAILY methocarbamol 750 mg tablet 750 mg PO QID trazodone 100 mg tablet 100 mg PO HS epinephrine 0.3 mg/0.3 mL auto-injector 0.3 mg multivitamin Tablet 1 tab PO DAILY Follow Up/Referrals: Provider,Not a Local [Referring] - Stand Alone Forms: [facility] Info Instructions
[2022-11-20] MEDS: 0.9 % SODIUM CHLORIDE 1000 ml 1,000 ML IV (14:54)
[2022-11-20] MEDS: OMEPRAZOLE 20 MG CAPSULE DR PO (14:54)
[2022-11-20 14:58] LABS: Appearance Urine Clear (Clear); Bilirubin Urine Negative (Negative); Blood Urine Trace-lysed (Negative); Color Urine Yellow (Yellow); Glucose Urine Negative (Negative); Ketones Urine Negative (Negative); Leukocyte Esterase Urine Negative (Negative); Nitrite Urine Negative (Negative); Protein Urine Negative (Negative); Specific Gravity Urine 1.015 (1.000-1.030); Urobilinogen Urine 0.2 (0.2-1.0)
[2022-11-20 15:02] LABS: HCG Qualitative* Negative (Negative); Lactate* 1.3 mmol/L (0.5-1.9)
[2022-11-20 15:04] LABS: Basophils Percent Auto 0.2 % (0.0-3.0); Eosinophils Percent Auto 0.5 % (0.0-7.0); Hemoglobin* 14.5 gm/dL (12.0-16.0); Immature Granulocytes Pct Auto 0.8 %; Lymphocytes Percent Auto 22.8 % (20-44); Mean Corpuscular HGB Conc 34 gm/dL (32-36); Mean Corpuscular Hemoglobin 30 pg (26-34); Mean Corpuscular Volume 90 fL (80-100); Monocytes Percent Auto 6.5 % (0.0-11.0); Neutrophils Percent Auto 69.2 % (42.0-72.0); Platelet Count* 325 K/uL (140-440); RDW Coefficient of Variation % 12.5 % (11.5-15.5); White Blood Count* 12.71 K/uL (4.50-11.00)
[2022-11-20 15:08] LABS: Slide Review Reflex No
[2022-11-20 15:16] LABS: Albumin* 4.6 g/dL (3.3-5.0); Chloride* 101 mmol/L (96-114)
[2022-11-20 15:17] LABS: Squamous Epithelial Cell Urine Few (None-Few); WBC Urine 0-2 (0-5)
[2022-11-20 15:17] LABS: Potassium* 3.7 mmol/L (3.6-5.1); Sodium* 140 mmol/L (135-149)
[2022-11-20 15:18] LABS: Bacteria Urine Few
[2022-11-20 15:19] LABS: Aspartate Amino Transferase* 19 U/L (12-35); Bilirubin Direct* 0.2 mg/dL (0.0-0.5); Bilirubin Total* 0.4 mg/dL (0.1-1.5); Carbon Dioxide* 32 mmol/L (20-32); Creatinine* 0.6 mg/dL (0.5-1.5); Est. Creatinine Clearance* 96.86; Estimated Glomerular Filt Rate 109 ml/min
[2022-11-20 15:20] LABS: Alanine Aminotransferase* 20 U/L (4-35); Alkaline Phosphatase* 102 U/L (40-150); Blood Urea Nitrogen* 12 mg/dL (7-30); Calcium* 9.2 mg/dL (8.4-10.6); Glucose* 110 mg/dL (60-115); Lipase* 50 U/L (23-300)
[2022-11-20 15:22] LABS: C Reactive Protein* 0.6 mg/dL (0.5-1.0)
[2022-11-20 15:50] VITALS: BP 126/78; PULSE 86; RESP 16; O2SAT 98
[2022-11-20 15:54] LABS: Erythrocyte SedimentationRate* 12 mm/hr (2-20)
--- NOTE | 2022-11-20 16:14 | CRLHL7_ITS ---
For Patients: As a result of the Century Cures Act, medical imaging exams and procedure reports are released immediately into your electronic medical record. You may view this report before your referring provider. If you have questions, please contact your health care provider. INDICATION: Abdominal pain. History of uterine cancer. TECHNIQUE: Multiple axial images were obtained from the diaphragm to the symphysis pubis after administration of 66 mL of Isovue 370 intravenously. Sagittal and coronal re-formatted images were obtained. COMPARISON: 06/27/2017. FINDINGS: The visualized portion of the lung bases are clear. There is a stable hemangioma in an the right lobe liver inferiorly. There is a stable cyst right lobe liver inferiorly. There is no new liver lesion seen. The spleen, pancreas, gallbladder and adrenal glands are unremarkable. There is a stable cyst in the lower pole of the right kidney. There is no new mass seen in the kidneys. There is no hydronephrosis. There is no evidence of a bowel obstruction. There are surgical clips by the cecum consistent with a previous appendectomy. There is thickening of the wall of the descending colon consistent with a colitis. The uterus is surgically absent. There is a 2.2 cm cystic structure in the left pelvis which is likely an ovarian cyst. There is no free fluid in the abdomen or pelvis. The abdominal aorta is normal in caliber. There are atherosclerotic calcifications. IMPRESSION: 1. Thickening of the wall of the descending colon consistent with a colitis. 2. 2.2 cm cyst structure left pelvis which is likely an ovarian cyst. 3. Status post hysterectomy and appendectomy. 4. Stable hemangioma and cyst in the right lobe of the liver inferiorly. 5. Right kidney cyst. Please note that all CT scans at this facility use dose modulation, iterative reconstruction, and/or weight-based dosing when appropriate to reduce radiation dose to as low as reasonably achievable. Dictated by Marcos Rivas MD @ 11/20/2022 6:39:30 PM (Electronically Signed)
--- NOTE | 2022-11-20 19:10 | PC.NURSE ---
Patient to waiting room to make phone call to call WICHITA mother. Did not want to yell and disrupt other patients.
== END 2022-11-20 19:19 | disposition home or self-care (01) ==
PROVIDERS: Emergency Provider Family Medicine; PCP Family Medicine
DX: K62.5 Hemorrhage of anus and rectum (principal); K52.9 Noninfective gastroenteritis and colitis, unspecified
CPT/HCPCS: 36415; 74177; 80048; 80076; 81001; 83605; 83690; 84703; 85025; 85651; 86140; 87086; 99283; 99284; 99285; A9270; J7030; Q9967

== ENCOUNTER 2022-12-26 06:01 | Outpatient (CLI) | payer MEDICAID, SELFPAY ==
--- OUTSIDE RECORDS SUMMARY | 2022-12-28 11:23 | XMS_ITS | Continuity of Care Document ---
:1970 Author Organization [facility] Address [address] [place] [address] Phone Care Team Providers Name Role Phone Will Pawan KIM Unavailable Unavailable Advance Directives Directive Yes / No Effective Date File Name No Information Encounters Encounter Practice Location Reason(s) Diagnoses Date Provider Provide rs Description For Visit Copied on Encounter Twin Ed No [facility] -2021 Pawan. Pain Pain [address] [place], [address] , [place], [place], [place], [id number], [id number], [place]. [place] tel:[phone] tel:[phone] Family History Family Member Type Diagnosis Age At Onset No Information Payers Payer name Insurance type Covered democrat ID Authorization(s ) No Information Social History [...]
== END 2022-12-26 06:02 | disposition home or self-care (01) ==
LOC: AMB 12-28 11:21
PROVIDERS: PCP Family Medicine; Visit Provider Internal Medicine
DX: R10.9 Unspecified abdominal pain (principal)
CPT/HCPCS: A0425; A0433

== ENCOUNTER 2022-12-26 06:31 | Emergency (ER) | payer MEDICAID, SELFPAY ==
[2022-12-26] VITALS (25 sets, daily range): BP systolic 104–140; BP diastolic 71–98; PULSE 75–118; RESP 16–18; TEMP 36.3–37.1; O2SAT 93–98; BMI 24.0
--- NOTE | 2022-12-26 06:39 | CRLHL7_ITS ---
For Patients: As a result of the Century Cures Act, medical imaging exams and procedure reports are released immediately into your electronic medical record. You may view this report before your referring provider. If you have questions, please contact your health care provider. INDICATION: Left-sided abdominal pain COMPARISON: November 20, 2022 TECHNIQUE: CT examination of the abdomen and pelvis was performed following the uneventful intravenous administration of 66 cc of Isovue 370. Thin section axial images were obtained from the lung bases through the pubic symphysis. Oral contrast was not administered. Please note that all CT scans at this facility use dose modulation, iterative reconstruction, and/or weight-based dosing when appropriate to reduce radiation dose to as low as reasonably achievable. FINDINGS: LUNG BASES: The lung bases as visualized appear normal.The heart size is normal at the lung bases. LIVER/BILIARY SYSTEM:Normal sized liver. Hemangioma inferiorly located to the right lobe of the liver measuring about 2 centimeters unchanged. Steatosis. No solid mass. No biliary ductal dilatation. Normal appearing gallbladder. ADRENALS: Normal KIDNEYS, URETERS and BLADDER:Kidneys normal in size. Right lower pole 10 millimeter renal lesion. This is not a simple cyst but is unchanged in size and appearance since June 27, 2017 and therefore likely to be benign. No obstructive uropathy. The unopacified bladder as visualized appears normal. SPLEEN:Normal appearance. PANCREAS: Appears normal. RETROPERITONEUM and MESENTERY: There is no mass, adenopathy or aortic aneurysm. GASTROINTESTINAL SYSTEM: Extensive colonic fecal retention throughout the entirety of the colon from the cecum to the rectum. No wall thickening or definite mechanical obstruction parents small-bowel as visualized appears normal. The patient had a left-sided colitis pattern on the prior study which has resolved. PELVIS: No mass, adenopathy or free fluid. OSSEOUS STRUCTURES and ABDOMINAL WALL: There is an age-appropriate appearance of the osseous structures.No significant abdominal wall defect. OTHER: No free fluid or free air. IMPRESSION: 1. Extensive colonic fecal retention without mechanical obstruction in keeping with constipation. The patient had a left-sided colitis pattern on the prior study of 11/20/2022 which has resolved. 2. Other incidental nonacute appearing findings as discussed above. Please note that all CT scans at this facility use dose modulation, iterative reconstruction, and/or weight-based dosing when appropriate to reduce radiation dose to as low as reasonably achievable. Dictated by Darrin Wells MD @ 12/26/2022 8:25:09 AM (Electronically Signed)
--- NOTE | 2022-12-26 06:41 | ED.ABDPAIN ---
HPI - Abdominal Pain General Chief Complaint: Abdominal Pain <Merrick Vernon MD - Last Filed: 12/28/22 07:44> Stated Complaint: Abdominal pain and vomiting <Merrick Vernon MD - Last Filed: 12/28/22 07:44> Time Seen by Provider: 12/26/22 06:38 <Merrick Vernon MD - Last Filed: 12/28/22 07:44> History of Present Illness HPI narrative: Pt is a 52 year old woman with history of mild self limited colitis approx. one month ago who presents via ambulance with the abrupt onselt of sharp abd pain in the LLQ. Pt states that she has had mild symptoms of pain for the past several days but awoke this morning with severe pain in the LLQ this morning. No blood in her stool. No nausea or vomiting. Pt has had no reflux or recent travel. No rash. No sick contacts. Her previous episode was treated symptomatically with complete resolution. No other symptoms. Pt has been in her usual good state of health. <Merrick Vernon MD - Last Filed: 12/28/22 07:44> Related Data Home Medications: Home Medications Medication Instructions Recorded Confirmed bupropion HCl 150 mg tablet,12 hr 150 mg PO BID 05/10/22 12/26/22 sustained-release epinephrine 0.3 mg/0.3 mL 0.3 mg 05/10/22 injection, auto-injector methocarbamol 750 mg tablet 750 mg PO QID 05/10/22 12/26/22 multivitamin 1 tab PO DAILY 05/10/22 12/26/22 trazodone 100 mg tablet 100 mg PO HS 05/10/22 12/26/22 venlafaxine 150 mg 150 mg PO DAILY 05/10/22 12/26/22 capsule,extended release 24 hr venlafaxine 75 mg capsule,extended 75 mg PO DAILY 05/10/22 12/26/22 release 24 hr <Merrick Vernon MD - Last Filed: 12/28/22 07:44> Allergies/Adverse Reactions: Allergies Allergy/AdvReac Type Severity Reaction Status Date / Time bee pollen Allergy Verified 11/20/22 14:13 <Merrick Vernon MD - Last Filed: 12/28/22 07:44> Review of Systems Status of ROS Reports: 10 or more systems reviewed and unremarkable except as noted in History and below <Merrick Vernon MD - Last Filed: 12/28/22 07:44> [facility] Medical History: Medical History ADHD Anxiety Cervical radiculopathy at C7 Chronic pain Depression History of alcohol abuse Migraine PTSD (post-traumatic stress disorder) Tobacco use <Merrick Vernon MD - Last Filed: 12/28/22 07:44> Surgical History: Surgical History History of appendectomy History of cervical discectomy History of fusion of cervical spine History of hysterectomy <Merrick Vernon MD - Last Filed: 12/28/22 07:44> Social History: Social History Narrative: She smokes cigarettes. She drinks 6 alcoholic beverages per week Smoking Status: Current every day smoker What tobacco products do you use: cigarettes Do you use any of these nicotine containing products: None Second hand tobacco smoke exposure: No How often do you have a drink containing alcohol: monthly or less How many standard drinks containing alcohol do you have on a typical day: 1 or 2 AUDIT-C Alcohol total score: 1 Non-prescribed substance use: marijuana (any form) service: No <Merrick Vernon MD - Last Filed: 12/28/22 07:44> Exam Narrative: Exam Narrative: EXAM GENERAL: Patient appears comfortable and well. EYES: No scleral icterus. THYROID: no thyroid nodules or thyromegaly. LYMPH: No supraclavicular or cervical lymphadenopathy. SKIN: Visible skin seen during exam normal or with benign process only. EXT: No dependent lower extremity pedal edema. HEART: Regular rate and rhythm with no murmurs, rubs, or gallops. LUNGS: Clear to auscultation bilaterally with no crackles or wheezes. ABD: Soft, non tender, non distended. PSYCH: Good eye contact, speech is not pressured. <Merrick Vernon MD - Last Filed: 12/28/22 07:44> Const: Vital Signs, click to edit/add: Vital Signs - 24 hr 12/26/22 06:37 12/26/22 06:38 12/26/22 06:43 Temperature 97.4 F L Pulse Rate 82 Respiratory Rate 16 Blood Pressure 134/86 Blood Pressure [Le ft Upper Arm] 140/91 H Pulse Oximetry 98 97 Oxygen Delivery Me thod Room Air 12/26/22 06:50 12/26/22 07:00 12/26/22 07:01 Temperature Pulse Rate 86 84 84 Respiratory Rate Blood Pressure 119/98 H Blood Pressure [Le ft Upper Arm] Pulse Oximetry 93 93 95 Oxygen Delivery Me thod 12/26/22 07:15 12/26/22 07:30 12/26/22 07:31 Temperature Pulse Rate 75 89 78 Respiratory Rate Blood Pressure 104/71 Blood Pressure [Le ft Upper Arm] Pulse Oximetry 94 94 96 Oxygen Delivery Me thod 12/26/22 07:49 12/26/22 08:00 12/26/22 08:01 Temperature Pulse Rate 104 H 96 96 Respiratory Rate Blood Pressure 134/88 Blood Pressure [Le ft Upper Arm] Pulse Oximetry 95 95 96 Oxygen Delivery Me thod 12/26/22 08:17 12/26/22 08:30 12/26/22 08:31 Temperature Pulse Rate 118 H 95 105 H Respiratory Rate Blood Pressure 130/88 Blood Pressure [Le ft Upper Arm] Pulse Oximetry 95 95 96 Oxygen Delivery Me thod 12/26/22 09:41 12/26/22 08:32 12/26/22 09:44 Temperature 98.7 F Pulse Rate 89 84 Respiratory Rate Blood Pressure Blood Pressure [Le ft Upper Arm] Pulse Oximetry 96 94 Oxygen Delivery Me thod 12/26/22 09:45 12/26/22 09:46 12/26/22 10:00 Temperature Pulse Rate 93 88 86 Respiratory Rate Blood Pressure 134/81 Blood Pressure [Le ft Upper Arm] Pulse Oximetry 97 97 96 Oxygen Delivery Me thod 12/26/22 10:01 12/26/22 10:02 12/26/22 10:15 Temperature Pulse Rate 83 79 102 H Respiratory Rate Blood Pressure 136/84 Blood Pressure [Le ft Upper Arm] Pulse Oximetry 96 96 96 Oxygen Delivery Me thod 12/26/22 12:17 Temperature 97.6 F Pulse Rate 108 H Respiratory Rate 18 Blood Pressure 128/75 Blood Pressure [Le ft Upper Arm] Pulse Oximetry 98 Oxygen Delivery Me thod <Merrick Vernon MD - Last Filed: 12/28/22 07:44> Vital Signs, click to edit/add: Vital Signs - 24 hr 12/26/22 06:37 12/26/22 06:38 12/26/22 06:43 Temperature 97.4 F L Pulse Rate 82 Respiratory Rate 16 Blood Pressure 134/86 Blood Pressure [Le ft Upper Arm] 140/91 H Pulse Oximetry 98 97 Oxygen Delivery Me thod Room Air 12/26/22 06:50 12/26/22 07:00 12/26/22 07:01 Temperature Pulse Rate 86 84 84 Respiratory Rate Blood Pressure 119/98 H Blood Pressure [Le ft Upper Arm] Pulse Oximetry 93 93 95 Oxygen Delivery Me thod 12/26/22 07:15 12/26/22 07:30 12/26/22 07:31 Temperature Pulse Rate 75 89 78 Respiratory Rate Blood Pressure 104/71 Blood Pressure [Le ft Upper Arm] Pulse Oximetry 94 94 96 Oxygen Delivery Me thod 12/26/22 07:49 12/26/22 08:00 12/26/22 08:01 Temperature Pulse Rate 104 H 96 96 Respiratory Rate Blood Pressure 134/88 Blood Pressure [Le ft Upper Arm] Pulse Oximetry 95 95 96 Oxygen Delivery Me thod 12/26/22 08:17 12/26/22 08:30 12/26/22 08:31 Temperature Pulse Rate 118 H 95 105 H Respiratory Rate Blood Pressure 130/88 Blood Pressure [Le ft Upper Arm] Pulse Oximetry 95 95 96 Oxygen Delivery Me thod 12/26/22 09:41 12/26/22 08:32 12/26/22 09:44 Temperature 98.7 F Pulse Rate 89 84 Respiratory Rate Blood Pressure Blood Pressure [Le ft Upper Arm] Pulse Oximetry 96 94 Oxygen Delivery Me thod 12/26/22 09:45 12/26/22 09:46 12/26/22 10:00 Temperature Pulse Rate 93 88 86 Respiratory Rate Blood Pressure 134/81 Blood Pressure [Le ft Upper Arm] Pulse Oximetry 97 97 96 Oxygen Delivery Me thod 12/26/22 10:01 12/26/22 10:02 12/26/22 10:15 Temperature Pulse Rate 83 79 102 H Respiratory Rate Blood Pressure 136/84 Blood Pressure [Le ft Upper Arm] Pulse Oximetry 96 96 96 Oxygen Delivery Me thod 12/26/22 12:17 Temperature 97.6 F Pulse Rate 108 H Respiratory Rate 18 Blood Pressure 128/75 Blood Pressure [Le ft Upper Arm] Pulse Oximetry 98 Oxygen Delivery Me thod <Dorothy Lockhart MD - Last Filed: 12/26/22 12:57> Course Course Hospital Course: Pt seen and examined. CT abd and pelvis, CBC, CMP, Amylase, UA ordered. Previous record reviewed. <Merrick Vernon MD - Last Filed: 12/28/22 07:44> Reevaluation(s) Reevaluation #1: Reviewed her CT scan with her, reviewed her labs. Her CT scan is just showing stool burden/constipation. Her white count is significantly elevated at 20,000 thousand however. She has had some vomiting prior to coming here, still has ongoing left-sided abdominal pain. She states normally her urine is extremely clear and she was surprised to see that it looked darker here. She is not having urinary symptoms such as gross hematuria, dysuria or frequency. She has not been sexually active. She has had a hysterectomy. Right now, she states she is cold, just really does not feel well. Given this constellation of symptoms and findings, do believe that this could represent an early pyelonephritis, particularly with that elevated white count. If she just started with symptoms, CT may not showing any significant inflammation. Will initiate IV Rocephin and then discharged to home on oral antibiotics. We will be culturing the urine. <Dorothy Lockhrat MD - Last Filed: 12/26/22 12:57> Time: 09:21 <Dorothy Lockhart MD - Last Filed: 12/26/22 12:57> Reevaluation #2: Nursing staff just reported to me that patient had an episode of fecal incontinence. Stool did end up looking mucousy, nursing staff was wondering about C difficile colitis. Stool could not be collected. We will have patient wait and collect C difficile. She has not been on antibiotics recently, no known exposure, no history of this. This may explain the abdominal pain, elevated white count. Certainly would not want to continue with treatment for urinary tract infection that is the case. I would feel more confident if we attempt to figure this out a bit further. <Dorothy Lockhart MD - Last Filed: 12/26/22 12:57> Time: 10:31 <Dorothy Lockhart MD - Last Filed: 12/26/22 12:57> Reevaluation #3: Patient has had some food and drink here. Has had a little abdominal pain but no return of diarrhea. With the development of the diarrhea, other things like gastroenteritis C difficile colitis are at higher concern. I do not think we should continue antibiotics for urinary tract issues or pyelonephritis. She is going to take on the stool collection kit in bring it back. If she does have C difficile colitis, will initiate oral vancomycin. Otherwise supportive cares. She did get a dose of Rocephin here but that was before the diarrhea and it with her white count, did feel we really needed to cover for infectious etiology. Plan will be to return if worsening overnight. Otherwise, will have her come back for an outpatient white blood count tomorrow as there really is no where for her to follow-up. My lab add on for procalcitonin and C-reactive protein are normal. <Dorothy Lockhart MD - Last Filed: 12/26/22 12:57> Time: 12:51 <Dorothy Lockhart MD - Last Filed: 12/26/22 12:57> Vital Signs Vital signs: Initial Vital Signs Temperature 97.4 F L 12/26/22 06:37 Temperature Source Temporal Artery Scan 12/26/22 06:37 Respiratory Rate 16 12/26/22 06:37 Blood Pressure 140/91 H 12/26/22 06:37 Blood Pressure Mean 107 12/26/22 06:37 Pulse Oximetry 98 12/26/22 06:37 Oxygen Delivery Method 12/26/22 06:37 Vital Signs Temperature 97.4 F L 12/26/22 06:37 Respiratory Rate 16 12/26/22 06:37 Blood Pressure 140/91 H 12/26/22 06:37 Pulse Oximetry 98 12/26/22 06:37 Oxygen Delivery Method 12/26/22 06:37 Temperature 97.6 F 12/26/22 12:17 Pulse Rate 108 H 12/26/22 12:17 Respiratory Rate 18 12/26/22 12:17 Blood Pressure 128/75 12/26/22 12:17 Pulse Oximetry 98 12/26/22 12:17 Oxygen Delivery Method 12/26/22 06:37 <Merrick Vernon MD - Last Filed: 12/28/22 07:44> Initial Vital Signs Temperature 97.4 F L 12/26/22 06:37 Temperature Source Temporal Artery Scan 12/26/22 06:37 Respiratory Rate 16 12/26/22 06:37 Blood Pressure 140/91 H 12/26/22 06:37 Blood Pressure Mean 107 12/26/22 06:37 Pulse Oximetry 98 12/26/22 06:37 Oxygen Delivery Method 12/26/22 06:37 Vital Signs Temperature 97.4 F L 12/26/22 06:37 Respiratory Rate 16 12/26/22 06:37 Blood Pressure 140/91 H 12/26/22 06:37 Pulse Oximetry 98 12/26/22 06:37 Oxygen Delivery Method 12/26/22 06:37 Temperature 97.6 F 12/26/22 12:17 Pulse Rate 108 H 12/26/22 12:17 Respiratory Rate 18 12/26/22 12:17 Blood Pressure 128/75 12/26/22 12:17 Pulse Oximetry 98 12/26/22 12:17 Oxygen Delivery Method 12/26/22 06:37 <Dorothy Lockhart MD - Last Filed: 12/26/22 12:57> MDM - Abdominal Pain Lab Data Attestation: I reviewed the patient's lab results. <Dorothy Lockhart MD - Last Filed: 12/26/22 12:57> Labs: Lab Results 12/26/22 12/26/22 12/26/22 Range/Units 06:45 06:45 06:45 WBC 20.18 H (4.50-11.00) K/uL RBC 4.81 (4.00-5.20) m/uL Hgb 14.3 (12.0-16.0) gm/dL Hct 42.9 (33.0-51.0) % MCV 89 (80-100) fL MCH 30 (26-34) pg MCHC 33 (32-36) gm/dL RDW Coeff of Debi 12.8 (11.5-15.5) % Plt Count 342 (140-440) K/uL Neut % (Auto) 74.6 H (42.0-72.0) % Lymph % (Auto) 20.6 (20-44) % [place] % (Auto) 3.7 (0.0-11.0) % Eos % (Auto) 0.8 (0.0-7.0) % Baso % (Auto) 0.1 (0.0-3.0) % Neut # (Auto) 15.10 H (1.7-7.0) K/uL Lymph # (Auto) 4.20 H (0.90-2.90) K/uL [place] # (Auto) 0.70 (0.00-0.90) K/UL Eos # (Auto) 0.20 (0.00-0.50) K/uL Baso # (Auto) 0.00 (0.00-0.30) K/uL Sodium 142 (135-149) mmol/L Potassium 4.0 (3.6-5.1) mmol/L Chloride 107 (96-114) mmol/L Carbon Dioxide 24 (20-32) mmol/L BUN 10 (7-30) mg/dL Creatinine 0.6 (0.5-1.5) mg/dL Estimated Creat Clear 96.86 Estimated GFR 109 ml/min Glucose 121 H (60-115) mg/dL Calcium 9.1 (8.4-10.6) mg/dL Total Bilirubin 0.4 (0.1-1.5) mg/dL AST 22 (12-35) U/L ALT 19 (4-35) U/L Alkaline Phosphatase 89 (40-150) U/L C-Reactive Protein 0.6 (0.5-1.0) mg/dL Total Protein 7.8 (6.0-8.3) g/dL Albumin 4.6 (3.3-5.0) g/dL Amylase 155 H (18-89) U/L Procalcitonin < 0.03 L (<0.50) ng/mL Urine Color Brown A (Yellow) Urine Appearance Clear (Clear) Urine pH 5.5 (5.0-8.5) Ur Specific [place] >= 1.030 (1.000-1.030) Urine Protein 2+ A (Negative) Urine Glucose (UA) Negative (Negative) Urine Ketones 1+ A (Negative) Urine Blood 2+ A (Negative) Urine Nitrite Negative (Negative) Urine Bilirubin 1+ A (Negative) Urine Urobilinogen 0.2 (0.2-1.0) Ur Leukocyte Esterase Negative (Negative) Urine RBC 2-5 A (0-2) Urine WBC 0-2 (0-5) Ur Squamous Epith Cells Few (None-Few) Urine Bacteria Few A (None) Stl C.difficile Tox PCR (Negative) St C. diff Tox Epid 027 (Negative) 12/26/22 Range/Units 10:28 WBC (4.50-11.00) K/uL RBC (4.00-5.20) m/uL Hgb (12.0-16.0) gm/dL Hct (33.0-51.0) % MCV (80-100) fL MCH (26-34) pg MCHC (32-36) gm/dL RDW Coeff of Debi (11.5-15.5) % Plt Count (140-440) K/uL Neut % (Auto) (42.0-72.0) % Lymph % (Auto) (20-44) % [place] % (Auto) (0.0-11.0) % Eos % (Auto) (0.0-7.0) % Baso % (Auto) (0.0-3.0) % Neut # (Auto) (1.7-7.0) K/uL Lymph # (Auto) (0.90-2.90) K/uL [place] # (Auto) (0.00-0.90) K/UL Eos # (Auto) (0.00-0.50) K/uL Baso # (Auto) (0.00-0.30) K/uL Sodium (135-149) mmol/L Potassium (3.6-5.1) mmol/L Chloride (96-114) mmol/L Carbon Dioxide (20-32) mmol/L BUN (7-30) mg/dL Creatinine (0.5-1.5) mg/dL Estimated Creat Clear Estimated GFR ml/min Glucose (60-115) mg/dL Calcium (8.4-10.6) mg/dL Total Bilirubin (0.1-1.5) mg/dL AST (12-35) U/L ALT (4-35) U/L Alkaline Phosphatase (40-150) U/L C-Reactive Protein (0.5-1.0) mg/dL Total Protein (6.0-8.3) g/dL Albumin (3.3-5.0) g/dL Amylase (18-89) U/L Procalcitonin (<0.50) ng/mL Urine Color (Yellow) Urine Appearance (Clear) Urine pH (5.0-8.5) Ur Specific [place] (1.000-1.030) Urine Protein (Negative) Urine Glucose (UA) (Negative) Urine Ketones (Negative) Urine Blood (Negative) Urine Nitrite (Negative) Urine Bilirubin (Negative) Urine Urobilinogen (0.2-1.0) Ur Leukocyte Esterase (Negative) Urine RBC (0-2) Urine WBC (0-5) Ur Squamous Epith Cells (None-Few) Urine Bacteria (None) Stl C.difficile Tox PCR Negative (Negative) St C. diff Tox Epid 027 PRESUMPTIVE NEGATIVE (Negative) <Merrick Vernon MD - Last Filed: 12/28/22 07:44> Lab Results 12/26/22 12/26/22 12/26/22 Range/Units 06:45 06:45 06:45 WBC 20.18 H (4.50-11.00) K/uL RBC 4.81 (4.00-5.20) m/uL Hgb 14.3 (12.0-16.0) gm/dL Hct 42.9 (33.0-51.0) % MCV 89 (80-100) fL MCH 30 (26-34) pg MCHC 33 (32-36) gm/dL RDW Coeff of Debi 12.8 (11.5-15.5) % Plt Count 342 (140-440) K/uL Neut % (Auto) 74.6 H (42.0-72.0) % Lymph % (Auto) 20.6 (20-44) % [place] % (Auto) 3.7 (0.0-11.0) % Eos % (Auto) 0.8 (0.0-7.0) % Baso % (Auto) 0.1 (0.0-3.0) % Neut # (Auto) 15.10 H (1.7-7.0) K/uL Lymph # (Auto) 4.20 H (0.90-2.90) K/uL [place] # (Auto) 0.70 (0.00-0.90) K/UL Eos # (Auto) 0.20 (0.00-0.50) K/uL Baso # (Auto) 0.00 (0.00-0.30) K/uL Sodium 142 (135-149) mmol/L Potassium 4.0 (3.6-5.1) mmol/L Chloride 107 (96-114) mmol/L Carbon Dioxide 24 (20-32) mmol/L BUN 10 (7-30) mg/dL Creatinine 0.6 (0.5-1.5) mg/dL Estimated Creat Clear 96.86 Estimated GFR 109 ml/min Glucose 121 H (60-115) mg/dL Calcium 9.1 (8.4-10.6) mg/dL Total Bilirubin 0.4 (0.1-1.5) mg/dL AST 22 (12-35) U/L ALT 19 (4-35) U/L Alkaline Phosphatase 89 (40-150) U/L C-Reactive Protein 0.6 (0.5-1.0) mg/dL Total Protein 7.8 (6.0-8.3) g/dL Albumin 4.6 (3.3-5.0) g/dL Amylase 155 H (18-89) U/L Procalcitonin < 0.03 L (<0.50) ng/mL Urine Color Brown A (Yellow) Urine Appearance Clear (Clear) Urine pH 5.5 (5.0-8.5) Ur Specific [place] >= 1.030 (1.000-1.030) Urine Protein 2+ A (Negative) Urine Glucose (UA) Negative (Negative) Urine Ketones 1+ A (Negative) Urine Blood 2+ A (Negative) Urine Nitrite Negative (Negative) Urine Bilirubin 1+ A (Negative) Urine Urobilinogen 0.2 (0.2-1.0) Ur Leukocyte Esterase Negative (Negative) Urine RBC 2-5 A (0-2) Urine WBC 0-2 (0-5) Ur Squamous Epith Cells Few (None-Few) Urine Bacteria Few A (None) Stl C.difficile Tox PCR (Negative) St C. diff Tox Epid 027 (Negative) 12/26/22 Range/Units 10:28 WBC (4.50-11.00) K/uL RBC (4.00-5.20) m/uL Hgb (12.0-16.0) gm/dL Hct (33.0-51.0) % MCV (80-100) fL MCH (26-34) pg MCHC (32-36) gm/dL RDW Coeff of Debi (11.5-15.5) % Plt Count (140-440) K/uL Neut % (Auto) (42.0-72.0) % Lymph % (Auto) (20-44) % [place] % (Auto) (0.0-11.0) % Eos % (Auto) (0.0-7.0) % Baso % (Auto) (0.0-3.0) % Neut # (Auto) (1.7-7.0) K/uL Lymph # (Auto) (0.90-2.90) K/uL [place] # (Auto) (0.00-0.90) K/UL Eos # (Auto) (0.00-0.50) K/uL Baso # (Auto) (0.00-0.30) K/uL Sodium (135-149) mmol/L Potassium (3.6-5.1) mmol/L Chloride (96-114) mmol/L Carbon Dioxide (20-32) mmol/L BUN (7-30) mg/dL Creatinine (0.5-1.5) mg/dL Estimated Creat Clear Estimated GFR ml/min Glucose (60-115) mg/dL Calcium (8.4-10.6) mg/dL Total Bilirubin (0.1-1.5) mg/dL AST (12-35) U/L ALT (4-35) U/L Alkaline Phosphatase (40-150) U/L C-Reactive Protein (0.5-1.0) mg/dL Total Protein (6.0-8.3) g/dL Albumin (3.3-5.0) g/dL Amylase (18-89) U/L Procalcitonin (<0.50) ng/mL Urine Color (Yellow) Urine Appearance (Clear) Urine pH (5.0-8.5) Ur Specific [place] (1.000-1.030) Urine Protein (Negative) Urine Glucose (UA) (Negative) Urine Ketones (Negative) Urine Blood (Negative) Urine Nitrite (Negative) Urine Bilirubin (Negative) Urine Urobilinogen (0.2-1.0) Ur Leukocyte Esterase (Negative) Urine RBC (0-2) Urine WBC (0-5) Ur Squamous Epith Cells (None-Few) Urine Bacteria (None) Stl C.difficile Tox PCR Negative (Negative) St C. diff Tox Epid 027 PRESUMPTIVE NEGATIVE (Negative) <Dorothy Lockhart MD - Last Filed: 12/26/22 12:57> Imaging Data CT scan - abdomen: Attestation: I have reviewed the pertinent imaging results. <Dorothy Lockhart MD - Last Filed: 12/26/22 12:57> Radiologist's impression: Patient: MANDY CONNOLLY Facility:?[facility] Patient ID:?[id number] Site Patient ID:?[id number]. Site :?[id number] Study:?CT Abdomen/Pelvis W/IV ONLY-12/26/2022 7:55:19 AM Ordering Physician:Govind Sin Final Report: INDICATION: Left-sided abdominal pain COMPARISON: November 20, 2022 TECHNIQUE: CT examination of the abdomen and pelvis was performed following the uneventful intravenous administration of 66 cc of Isovue 370. Thin section axial images were obtained from the lung bases through the pubic symphysis. Oral contrast was not administered. Please note that all CT scans at this facility use dose modulation, iterative reconstruction, and/or weight-based dosing when appropriate to reduce radiation dose to as low as reasonably achievable. FINDINGS: LUNG BASES: The lung bases as visualized appear normal.The heart size is normal at the lung bases. LIVER/BILIARY SYSTEM:Normal sized liver. Hemangioma inferiorly located to the right lobe of the liver measuring about 2 centimeters unchanged. Steatosis. No solid mass. No biliary ductal dilatation. Normal appearing gallbladder. ADRENALS: Normal KIDNEYS, URETERS and BLADDER:Kidneys normal in size. Right lower pole 10 millimeter renal lesion. This is not a simple cyst but is unchanged in size and appearance since June 27, 2017 and therefore likely to be benign. No obstructive uropathy. The unopacified bladder as visualized appears normal. SPLEEN:Normal appearance. PANCREAS: Appears normal. RETROPERITONEUM and MESENTERY: There is no mass, adenopathy or aortic aneurysm. GASTROINTESTINAL SYSTEM: Extensive colonic fecal retention throughout the entirety of the colon from the cecum to the rectum. No wall thickening or definite mechanical obstruction parents small-bowel as visualized appears normal. The patient had a left-sided colitis pattern on the prior study which has resolved. PELVIS: No mass, adenopathy or free fluid. OSSEOUS STRUCTURES and ABDOMINAL WALL: There is an age-appropriate appearance of the osseous structures.No significant abdominal wall defect. OTHER: No free fluid or free air. IMPRESSION: 1. Extensive colonic fecal retention without mechanical obstruction in keeping with constipation. The patient had a left-sided colitis pattern on the prior study of 11/20/2022 which has resolved. 2. Other incidental nonacute appearing findings as discussed above. Please note that all CT scans at this facility use dose modulation, iterative reconstruction, and/or weight-based dosing when appropriate to reduce radiation dose to as low as reasonably achievable. Dictated by Darrin Wells MD @ 12/26/2022 8:25:09 AM (Electronic Signature) <Dorothy Lockhart MD - Last Filed: 12/26/22 12:57> Critical Care Time Critical Care Time Critical Care Time: No <Dorothy Lockhart MD - Last Filed: 12/26/22 12:57> Discharge Plan Discharge Clinical Impression: Diarrhea, Elevated white blood cell count, Abdominal pain <Merrick Vernon MD - Last Filed: 12/28/22 07:44> Patient Disposition: Home, Self-Care <Merrick Vernon MD - Last Filed: 12/28/22 07:44> Condition: Stable <Merrick Vernon MD - Last Filed: 12/28/22 07:44> Instructions: Acute Diarrhea (ED), Abdominal Pain (ED) <Merrick Vernon MD - Last Filed: 12/28/22 07:44> Additional Instructions: Collect stool for studies that I have ordered an bring it back once you have collected it. Return tomorrow afternoon for a repeat outpatient CBC. In the meantime, can take in fluids, solid foods as able. If you have increasing abdominal pain, worsening or concerning symptoms in the interim, can always return for re-evaluation. <Merrick Vernon MD - Last Filed: 12/28/22 07:44> Activity Level: Activity as Tolerated <Merrick Vernon MD - Last Filed: 12/28/22 07:44> Activity as Tolerated <Dorothy Lockhart MD - Last Filed: 12/26/22 12:57> Prescriptions: No Action bupropion HCl 150 mg tablet sustained-release 12 hr 150 mg PO BID Hold Instructions: Order Change venlafaxine 75 mg capsule,extended release 24hr 75 mg PO DAILY venlafaxine 150 mg capsule,extended release 24hr 150 mg PO DAILY methocarbamol 750 mg tablet 750 mg PO QID trazodone 100 mg tablet 100 mg PO HS epinephrine 0.3 mg/0.3 mL auto-injector 0.3 mg multivitamin Tablet 1 tab PO DAILY <Merrick Vernon MD - Last Filed: 12/28/22 07:44> Follow Up/Referrals: Becky Laughlin MD [Primary Care Provider] - <Merrick Vernon MD - Last Filed: 12/28/22 07:44> Stand Alone Forms: [facility] Info Instructions <Merrick Vernon MD - Last Filed: 12/28/22 07:44>
[2022-12-26] MEDS: 0.9 % SODIUM CHLORIDE 1000 ml 1,000 ML IV (06:56)
--- OUTSIDE RECORDS SUMMARY | 2022-12-26 06:57 | XMS_ITS | Continuity of Care Document ---
:1970 Author Organization [facility] Address [address] [place] [address] Phone Care Team Providers Name Role Phone Will Pawan KIM Unavailable Unavailable Advance Directives Directive Yes / No Effective Date File Name No Information Encounters Encounter Practice Location Reason(s) Diagnoses Date Provider Provide rs Description For Visit Copied on Encounter Twin Ed No [facility] P[facility]an. [facility] [address] [place], [address] , [place], [place], [place], [id number], [id number], [place]. [place] tel:[phone] tel:[phone] Family History Family Member Type Diagnosis Age At Onset No Information Payers Payer name Insurance type Covered constitution party ID Authorization(s ) No Information Social History Type Description Quantity Date Captured Comments Sex Female Smoking Status No Information Chief Complaint And Reason For Visit No Information Reason For Referral Reason For Referral No Information Plan Of Treatment Date Type Action Status No Information History Of Present Illness Encounter Date Complaint History Of Present I llness No Information Functional Status Date Functional Assessment No Information Instructions Date Instruction Additional Informati on No Information Assessments Type Assessment Date No Information Patient Care Teams Name Effective Dates (start - stop) Status M embers No Information
[2022-12-26 06:58] LABS: Basophils Percent Auto 0.1 % (0.0-3.0); Eosinophils Percent Auto 0.8 % (0.0-7.0); Hematocrit 42.9 % (33.0-51.0); Hemoglobin* 14.3 gm/dL (12.0-16.0); Immature Granulocytes Pct Auto 0.2 %; Lymphocytes Percent Auto 20.6 % (20-44); Mean Corpuscular HGB Conc 33 gm/dL (32-36); Mean Corpuscular Hemoglobin 30 pg (26-34); Mean Corpuscular Volume 89 fL (80-100); Monocytes Percent Auto 3.7 % (0.0-11.0); Neutrophils Percent Auto 74.6 % (42.0-72.0); Platelet Count* 342 K/uL (140-440); RDW Coefficient of Variation % 12.8 % (11.5-15.5); Red Blood Count 4.81 m/uL (4.00-5.20); White Blood Count* 20.18 K/uL (4.50-11.00)
[2022-12-26 06:59] LABS: Appearance Urine Clear (Clear); Bilirubin Urine 1+ (Negative); Blood Urine 2+ (Negative); Color Urine Brown (Yellow); Glucose Urine Negative (Negative); Ketones Urine 1+ (Negative); Leukocyte Esterase Urine Negative (Negative); Nitrite Urine Negative (Negative); Protein Urine 2+ (Negative); Specific Gravity Urine >= 1.030 (1.000-1.030); Urobilinogen Urine 0.2 (0.2-1.0); pH Urine 5.5 (5.0-8.5)
[2022-12-26 07:17] LABS: Albumin* 4.6 g/dL (3.3-5.0); Chloride* 107 mmol/L (96-114)
[2022-12-26 07:18] LABS: Sodium* 142 mmol/L (135-149)
[2022-12-26 07:19] LABS: Slide Review Reflex No
[2022-12-26 07:20] LABS: Amylase* 155 U/L (18-89); Aspartate Amino Transferase* 22 U/L (12-35); Bilirubin Total* 0.4 mg/dL (0.1-1.5); Blood Urea Nitrogen* 10 mg/dL (7-30); Carbon Dioxide* 24 mmol/L (20-32); Creatinine* 0.6 mg/dL (0.5-1.5); Est. Creatinine Clearance* 96.86; Estimated Glomerular Filt Rate 109 ml/min; Total Protein* 7.8 g/dL (6.0-8.3)
[2022-12-26 07:21] LABS: Alanine Aminotransferase* 19 U/L (4-35); Alkaline Phosphatase* 89 U/L (40-150); Calcium* 9.1 mg/dL (8.4-10.6); Glucose* 121 mg/dL (60-115)
[2022-12-26 07:41] LABS: Bacteria Urine Few; Squamous Epithelial Cell Urine Few (None-Few); WBC Urine 0-2 (0-5)
[2022-12-26] MEDS: cefTRIAXone 2 GM in 0.9 % SODIUM CHLORIDE Mini-bag 100 ML IVPB (09:46)
[2022-12-26 10:50] LABS: C Reactive Protein* 0.6 mg/dL (0.5-1.0)
[2022-12-26 11:07] LABS: Procalcitonin* < 0.03 ng/mL (<0.50)
[2022-12-26 14:22] LABS: C.Difficile Negative (Negative); CDIFFEPI 027 PRESUMPTIVE NEGATIVE (Negative)
[2022-12-31 09:00] LABS: Ova and Parasite, Fecal Negative (Negative)
== END 2022-12-26 13:10 | disposition home or self-care (01) ==
PROVIDERS: Internal Medicine; Emergency Provider Family Medicine; PCP Family Medicine
DX: R19.7 Diarrhea, unspecified (principal); D72.829 Elevated white blood cell count, unspecified
CPT/HCPCS: 36415; 74177; 80053; 81003; 81015; 82150; 84145; 85025; 86140; 87045; 87046; 87086; 87177; 87209; 87427; 87493; 96365; 99283; 99284; J0696; J7030; Q9967

== ENCOUNTER 2022-12-27 11:15 | Outpatient (CLI) | payer MEDICAID, SELFPAY ==
[2022-12-27 11:35] LABS: Basophils Percent Auto 0.2 % (0.0-3.0); Eosinophils Percent Auto 0.9 % (0.0-7.0); Hematocrit 44.5 % (33.0-51.0); Hemoglobin* 14.6 gm/dL (12.0-16.0); Immature Granulocytes Pct Auto 0.1 %; Lymphocytes Percent Auto 20.4 % (20-44); Mean Corpuscular HGB Conc 33 gm/dL (32-36); Mean Corpuscular Hemoglobin 30 pg (26-34); Mean Corpuscular Volume 90 fL (80-100); Monocytes Percent Auto 5.3 % (0.0-11.0); Neutrophils Percent Auto 73.1 % (42.0-72.0); Platelet Count* 337 K/uL (140-440); Red Blood Count 4.94 m/uL (4.00-5.20); White Blood Count* 16.14 K/uL (4.50-11.00)
[2022-12-27 11:55] LABS: Slide Review Reflex No
== END 2022-12-27 11:16 | disposition home or self-care (01) ==
PROVIDERS: PCP Family Medicine; Visit Provider Family Medicine
DX: Z01.818 Encounter for other preprocedural examination (principal)
CPT/HCPCS: 36415; 85025

== ENCOUNTER 2023-03-30 14:43 | Emergency (ER) | payer MEDICAID, SELFPAY ==
[2023-03-30 14:47] VITALS: BP 141/92; PULSE 102; RESP 18; TEMP 36.1; O2SAT 98; BMI 22.3
--- NOTE | 2023-03-30 15:04 | ED.UPPEXIN ---
HPI - Extremity Injury (Upper) General Time Seen by Provider: 15:04 Date Seen: 03/30/23 Chief Complaint: Extremity Pain/Injury, Upper Stated Complaint: Needs Pressure in Finger Released Time Seen by Provider: 03/30/23 14:45 Source: patient and RN notes reviewed Mode of arrival: ambulatory Limitations: no limitations History of Present Illness HPI narrative: Patient is a 52-year-old female that accidentally hit her left 2nd finger with a hammer. She states she feels it is throbbing below the nail bed. She sees bruising in the finger, feels like it needs to be drained. complaint: injury to: left and finger Related Data Home Medications Medication Instructions Recorded Confirmed epinephrine 0.3 mg/0.3 mL 0.3 mg IM DIRECTED 05/10/22 03/07/23 injection, auto-injector methocarbamol 750 mg tablet 750 mg PO QID 05/10/22 03/30/23 trazodone 100 mg tablet 100 mg PO HS 05/10/22 03/30/23 venlafaxine 150 mg 150 mg PO DAILY 05/10/22 03/30/23 capsule,extended release 24 hr venlafaxine 75 mg capsule,extended 75 mg PO DAILY 05/10/22 03/30/23 release 24 hr Allergies Allergy/AdvReac Type Severity Reaction Status Date / Time bee pollen Allergy Severe Anaphylaxis Verified 03/07/23 00:26 Review of Systems Narrative: As per HPI. [facility] Medical History Open fracture ankle, bimalleolar ?S82.843B - Displaced bimalleolar fracture of unspecified lower leg, initial encounter for open fracture type I or II (ICD-10) PVC's (premature ventricular contractions) ?I49.3 - Ventricular premature depolarization (ICD-10) WILMAN II (vulvar intraepithelial neoplasia II) ?N90.1 - Moderate vulvar dysplasia (ICD-10) ADD (attention deficit disorder) ?F98.8 - Other specified behavioral and emotional disorders with onset usually occurring in childhood and adolescence (ICD-10) Fibromyalgia ?M79.7 - Fibromyalgia (ICD-10) Chronic pain ?G89.29 - Other chronic pain (ICD-10) PTSD (post-traumatic stress disorder) ?F43.10 - Post-traumatic stress disorder, unspecified (ICD-10) History of alcohol abuse ?F10.11 - Alcohol abuse, in remission (ICD-10) Cervical radiculopathy at C7 ?M54.12 - Radiculopathy, cervical region (ICD-10) Depression ?F32.A - Depression, unspecified (ICD-10) Migraine ?G43.909 - Migraine, unspecified, not intractable, without status migrainosus (ICD-10) Tobacco use ?Z72.0 - Tobacco use (ICD-10) ADHD ?F90.9 - Attention-deficit hyperactivity disorder, unspecified type (ICD-10) Anxiety ?F41.9 - Anxiety disorder, unspecified (ICD-10) Surgical History Status post incision and drainage ?Z98.890 - Other specified postprocedural states (ICD-10) S/P ablation of ventricular arrhythmia ?Z98.890 - Other specified postprocedural states (ICD-10) ?Z86.79 - Personal history of other diseases of the circulatory system (ICD-10) History of loop electrical excision procedure (LEEP) ?Z98.890 - Other specified postprocedural states (ICD-10) History of colonoscopy ?Z98.890 - Other specified postprocedural states (ICD-10) History of cervical discectomy ?Z98.890 - Other specified postprocedural states (ICD-10) History of hysterectomy ?Z90.710 - Acquired absence of both cervix and uterus (ICD-10) History of appendectomy ?Z90.49 - Acquired absence of other specified parts of digestive tract (ICD-10) History of fusion of cervical spine ?Z98.1 - Arthrodesis status (ICD-10) Social History Narrative: She smokes cigarettes. She drinks 6 alcoholic beverages per week Smoking Status: Current every day smoker What tobacco products do you use: cigarettes Smoking packs per day: 1 Smoking cigarettes per day: 20.0 Do you use any of these nicotine containing products: None and Other Second hand tobacco smoke exposure: Yes How often do you have a drink containing alcohol: 2-3 times a week How many standard drinks containing alcohol do you have on a typical day: 1 or 2 AUDIT-C Alcohol total score: 3 Non-prescribed substance use: marijuana (any form) service: No Exam Const: Vital Signs, click to edit/add: Vital Signs - 24 hr 03/30/23 14:47 Temperature 97 F L Pulse Rate [Pulse Oximeter] 102 H Respiratory Rate 18 Blood Pressure [Ri ght Upper Arm] 141/92 H Pulse Oximetry 98 Oxygen Delivery Me thod Room Air Documenting provider has reviewed patient's vital signs: yes Other: Left 2nd finger with a hematoma that can be seen along the distal pad on the lateral aspect. There is no open wound. There is some more diffuse faint bruising seen and swelling on the distal finger. There is absolutely nothing below the nail bed, no bruising that can be drained. Full range of motion, doesn't seem to involve DIP joint. Course Course Hospital Course: Will obtain xray to ensure no fracture. Reviewed that we do not drain the hematoma/bruising within the soft tissues. This is not a subungual hematoma that we can drain. Vital Signs Vital signs: Initial Vital Signs Temperature 97 F L 03/30/23 14:47 Temperature Source Temporal Artery Scan 03/30/23 14:47 Pulse Rate 102 H 03/30/23 14:47 Respiratory Rate 18 03/30/23 14:47 Blood Pressure 141/92 H 03/30/23 14:47 Blood Pressure Mean 108 H 03/30/23 14:47 Blood Pressure Position Sitting 03/30/23 14:47 Pulse Oximetry 98 03/30/23 14:47 Oxygen Delivery Method Room Air 03/30/23 14:47 Vital Signs Temperature 97 F L 03/30/23 14:47 Pulse Rate 102 H 03/30/23 14:47 Respiratory Rate 18 03/30/23 14:47 Blood Pressure 141/92 H 03/30/23 14:47 Pulse Oximetry 98 03/30/23 14:47 Oxygen Delivery Method Room Air 03/30/23 14:47 Temperature 97 F L 03/30/23 14:47 Pulse Rate 102 H 03/30/23 14:47 Respiratory Rate 18 03/30/23 14:47 Blood Pressure 141/92 H 03/30/23 14:47 Pulse Oximetry 98 03/30/23 14:47 Oxygen Delivery Method Room Air 03/30/23 14:47 MDM - Extremity Injury (Upper) Imaging Data XR left finger: Attestation: I have reviewed the pertinent imaging results. My impression: I do not appreciate an acute fracture. She has a spur off the dorsal aspect of the finger of the DIP joint which does not correspond or injury. Has rounded edges, does not appear to be any acute fracture. Await Radiology over-read. Radiologist's impression: Patient: MANDY CONNOLLY Facility:?[facility] Patient ID:?[id number] Site Patient ID:?[id number]. Site :?1970 Study:?XRay Extremity Left 3 view-03/30/2023 3:27:30 PM Ordering Physician:?Richy De La Cruz Final Report: Indication: Trauma. Technique: Left 2nd digit, 3 views. Comparison: None. Findings/Impression: Bones: Subtle irregularity along the 2nd digit distal phalangeal base, possibly nondisplaced fracture. Otherwise, no acute displaced fractures. Joint spaces: Unremarkable. Soft tissues: Unremarkable. Dictated by Nicolas Wilson MD @ 03/30/2023 4:25:59 PM (Electronic Signature) Critical Care Time Critical Care Time Critical Care Time: No Discharge Plan Discharge Clinical Impression: Traumatic hematoma of finger Patient Disposition: Home, Self-Care Condition: Stable Instructions: Hematoma (ED) Additional Instructions: Can use splint as needed for comfort. We do not recommend opening up hematomas in the soft tissues in most cases. Conservative management with elevation, ice and Tylenol/ibuprofen as needed per bottle directions for pain control. Elevation and ice, as much as able to for the next few days are going to be the biggest helping in minimizing pain and decreasing further bleeding. Activity Level: Activity as Tolerated Prescriptions: No Action venlafaxine 75 mg capsule,extended release 24hr 75 mg PO DAILY venlafaxine 150 mg capsule,extended release 24hr 150 mg PO DAILY methocarbamol 750 mg tablet 750 mg PO QID trazodone 100 mg tablet 100 mg PO HS epinephrine 0.3 mg/0.3 mL auto-injector 0.3 mg IM DIRECTED Follow Up/Referrals: Provider,Not a Local [Primary Care Provider] - Stand Alone [facility]: [facility] Info Instructions
--- NOTE | 2023-03-30 15:07 | CRLHL7_ITS ---
For Patients: As a result of the Cures Act, medical imaging exams and procedure reports are released immediately into your electronic medical record. You may view this report before your referring provider. If you have questions, please contact your health care provider. Indication: Trauma. Technique: Left 2nd digit, 3 views. Comparison: None. Findings/Impression: Bones: Subtle irregularity along the 2nd digit distal phalangeal base, possibly nondisplaced fracture. Otherwise, no acute displaced fractures. Joint spaces: Unremarkable. Soft tissues: Unremarkable. Dictated by Nicolas Wilson MD @ 03/30/2023 4:25:59 PM (Electronically Signed)
--- NOTE | 2023-03-30 15:16 | ED.NURSE ---
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 Noted bruising, no external bleeding.
== END 2023-03-30 16:12 | disposition home or self-care (01) ==
PROVIDERS: Emergency Provider Family Medicine
DX: S60.022A Contusion of left index finger without damage to nail, initial encounter (principal); W22.8XXA Striking against or struck by other objects, initial encounter
CPT/HCPCS: 73140; 99282; 99283

== ENCOUNTER 2024-01-10 14:19 | Emergency (ER) | payer OTHER, SELFPAY ==
[2024-01-10 14:23] VITALS: BP 158/93; PULSE 113; RESP 18; TEMP 36.5; O2SAT 100; BMI 23.2
--- NOTE | 2024-01-10 14:40 | ED_ITS ---
HPI - General Adult General Chief complaint: Dental/Oral/Mouth Injury/Pain Stated complaint: mouth pain Time Seen by Provider: 01/10/24 14:23 Source: patient Mode of arrival: ambulatory Limitations: no limitations History of Present Illness HPI narrative: 53-year-old female coming in today complaining of tooth pain. She states that some bothering her over the whole weekend. She has had teeth problems in the past. She can get in to see a dentist. She denies any systemic symptoms. Related Data Home Medications Medication Instructions Recorded Confirmed epinephrine 0.3 mg/0.3 mL 0.3 mg IM DIRECTED 05/10/22 03/07/23 injection, auto-injector trazodone 100 mg tablet 100 mg PO HS 05/10/22 03/30/23 venlafaxine 150 mg 150 mg PO DAILY 05/10/22 03/30/23 capsule,extended release 24 hr venlafaxine 75 mg capsule,extended 75 mg PO DAILY 05/10/22 03/30/23 release 24 hr Previous Rx's Medication Instructions Recorded amoxicillin 875 mg-potassium 1 tab PO BID 7 days #14 tabs 01/10/24 clavulanate 125 mg tablet Allergies Allergy/AdvReac Type Severity Reaction Status Date / Time bee pollen Allergy Severe Anaphylaxis Verified 03/07/23 00:26 Review of Systems Status of ROS: Reports: 10 or more systems reviewed and unremarkable except as noted in History and below [facility] Medical History Open fracture ankle, bimalleolar ?S82.843B - Displaced bimalleolar fracture of unspecified lower leg, initial encounter for open fracture type I or II (ICD-10) PVC's (premature ventricular contractions) ?I49.3 - Ventricular premature depolarization (ICD-10) WILMAN II (vulvar intraepithelial neoplasia II) ?N90.1 - Moderate vulvar dysplasia (ICD-10) ADD (attention deficit disorder) ?F98.8 - Other specified behavioral and emotional disorders with onset usually occurring in childhood and adolescence (ICD-10) Fibromyalgia ?M79.7 - Fibromyalgia (ICD-10) Chronic pain ?G89.29 - Other chronic pain (ICD-10) PTSD (post-traumatic stress disorder) ?F43.10 - Post-traumatic stress disorder, unspecified (ICD-10) History of alcohol abuse ?F10.11 - Alcohol abuse, in remission (ICD-10) Cervical radiculopathy at C7 ?M54.12 - Radiculopathy, cervical region (ICD-10) Depression ?F32.A - Depression, unspecified (ICD-10) Migraine ?G43.909 - Migraine, unspecified, not intractable, without status migrainosus (ICD-10) Tobacco use ?Z72.0 - Tobacco use (ICD-10) ADHD ?F90.9 - Attention-deficit hyperactivity disorder, unspecified type (ICD-10) Anxiety ?F41.9 - Anxiety disorder, unspecified (ICD-10) Surgical History Status post incision and drainage ?Z98.890 - Other specified postprocedural states (ICD-10) S/P ablation of ventricular arrhythmia ?Z98.890 - Other specified postprocedural states (ICD-10) ?Z86.79 - Personal history of other diseases of the circulatory system (ICD- 10) History of loop electrical excision procedure (LEEP) ?Z98.890 - Other specified postprocedural states (ICD-10) History of colonoscopy ?Z98.890 - Other specified postprocedural states (ICD-10) History of cervical discectomy ?Z98.890 - Other specified postprocedural states (ICD-10) History of hysterectomy ?Z90.710 - Acquired absence of both cervix and uterus (ICD-10) History of appendectomy ?Z90.49 - Acquired absence of other specified parts of digestive tract (ICD- 10) History of fusion of cervical spine ?Z98.1 - Arthrodesis status (ICD-10) Social History Narrative: She smokes cigarettes. She drinks 6 alcoholic beverages per week Smoking Status: Current every day smoker What tobacco products do you use: cigarettes Smoking packs per day: 1 Smoking cigarettes per day: 20.0 Do you use any of these nicotine containing products: None and Other Second hand tobacco smoke exposure: Yes How often do you have a drink containing alcohol: never How often do you have six or more drinks on one occasion: Never AUDIT-C Alcohol total score: 0 Non-prescribed substance use: marijuana (any form) Non-prescribed substance use details: smokes service: No Exam Narrative: Exam Narrative: Well-nourished well-developed patient in no acute distress. Alert and oriented. Answers questions appropriately. Mood and affect are appropriate. Thoughts are goal oriented and rational. No tangential or magical thinking noted. Patient speaks in full sentences without needing to catch her breath. Voice sounds normal. Pulse upon arrival was 113, recheck was 92. HEENT: Normocephalic atraumatic. Pupils are equally round reactive to light. Extraocular muscles are intact. Conjunctivae are moist without any icterus noted. Moist mucous membranes. Posterior pharynx is normal. Neck is soft without any lymphadenopathy or thyromegaly. No masses are appreciated. Patient has erythema of the lower anterior gums. There are no pockets of fluctuance, no obvious abscess. She has tenderness to palpation in that area. She can open and close her jaw without any difficulty. Skin: Well perfused without any obvious rashes. Const: Vital Signs, click to edit/add: Vital Signs - 24 hr 01/10/24 14:23 01/10/24 15:00 Temperature 97.7 F 98.7 F Pulse Rate [Pulse Oximeter] 113 H 92 Respiratory Rate 18 20 Blood Pressure [Ri ght Upper Arm] 158/93 H 151/102 H Pulse Oximetry 100 97 Oxygen Delivery Me thod Room Air Course Course ED Course: IM Toradol and Rocephin given in the ED today. Vital Signs Vital signs: Initial Vital Signs Temperature 97.7 F 01/10/24 14:23 Temperature Source Temporal Artery Scan 01/10/24 14:23 Pulse Rate 113 H 01/10/24 14:23 Respiratory Rate 18 01/10/24 14:23 Blood Pressure 158/93 H 01/10/24 14:23 Blood Pressure Mean 114 H 01/10/24 14:23 Blood Pressure Position Sitting 01/10/24 14:23 Pulse Oximetry 100 01/10/24 14:23 Oxygen Delivery Method Room Air 01/10/24 14:23 Vital Signs Temperature 97.7 F 01/10/24 14:23 Pulse Rate 113 H 01/10/24 14:23 Respiratory Rate 18 01/10/24 14:23 Blood Pressure 158/93 H 01/10/24 14:23 Pulse Oximetry 100 01/10/24 14:23 Oxygen Delivery Method Room Air 01/10/24 14:23 Temperature 98.7 F 01/10/24 15:00 Pulse Rate 92 01/10/24 15:00 Respiratory Rate 20 01/10/24 15:00 Blood Pressure 151/102 H 01/10/24 15:00 Pulse Oximetry 97 01/10/24 15:00 Oxygen Delivery Method Room Air 01/10/24 14:23 Medications Administered Medications: Generic Name Dose Route Start Last Admin Trade Name Freq PRN Reason Stop Dose Admin Lidocaine HCl 2.1 ml 01/10/24 14:39 01/10/24 14:57 Lidocaine 1% 5 Ml (Pf) 5 Ml Vial IM 2.1 ml DIRECTED PRN Administration Pain Discontinued Medications Generic Name Dose Route Start Last Admin Trade Name Freq PRN Reason Stop Dose Admin Ceftriaxone Sodium 1 gm 01/10/24 14:39 01/10/24 14:56 Ceftriaxone 1 Gm Vial IM 01/10/24 14:40 1 gm ONCE ONE Administration Ketorolac Tromethamine 60 mg 01/10/24 14:45 01/10/24 14:58 Ketorolac 60 Mg/2 Ml Inj IM 01/10/24 14:46 60 mg ONCE ONE Administration Medical Decision Making MDM Narrative Medical decision making narrative: 53-year-old female with gingival infection. Will treat with Augmentin b.i.d.. Dentist appointment recommended. Discharge Plan Discharge Clinical Impression: Disease of gingiva due to infection Patient Disposition: Home, Self-Care Condition: Stable Additional Instructions: Take all antibiotics as prescribed. Follow-up with a dentist. Return to the ER if you develop fever, vomiting. Prescriptions: New amoxicillin-pot clavulanate 875-125 mg tablet 1 tab PO BID 7 Days Qty: 14 0RF No Action venlafaxine 75 mg capsule,extended release 24hr 75 mg PO DAILY venlafaxine 150 mg capsule,extended release 24hr 150 mg PO DAILY trazodone 100 mg tablet 100 mg PO HS epinephrine 0.3 mg/0.3 mL auto-injector 0.3 mg IM DIRECTED Follow Up/Referrals: Provider,Not a Local [Primary Care Provider] - Stand Alone [facility] Info Instructions
[2024-01-10] MEDS: cefTRIAXone 1 GM VIAL IM (14:56)
[2024-01-10] MEDS: LIDOCAINE 1% 5 ml (pf) 5 ML VIAL 2.1 ML IM (14:57)
[2024-01-10] MEDS: KETOROLAC 60 MG/2 ML inj IM (14:58)
[2024-01-10 15:00] VITALS: BP 151/102; PULSE 92; RESP 20; TEMP 37.1; O2SAT 97
== END 2024-01-10 15:21 | disposition home or self-care (01) ==
PROVIDERS: Emergency Provider Family Medicine
DX: K05.00 Acute gingivitis, plaque induced (principal)
CPT/HCPCS: 96372; 99283; 99284; J0696; J1885

== ENCOUNTER 2024-01-12 14:18 | Emergency (ER) | payer MEDICAID, SELFPAY ==
[2024-01-12 14:37] VITALS: BP 136/87; PULSE 85; RESP 16; TEMP 36.7; O2SAT 99; BMI 24.0
== END 2024-01-12 15:12 | disposition home or self-care (01) ==
PROVIDERS: Emergency Provider Emergency Medicine Emergency Medical Services
DX: Z53.21 Procedure and treatment not carried out due to patient leaving prior to being seen by health care provider (principal)

== ENCOUNTER 2024-02-28 12:22 | Emergency (ER) | payer MEDICARE, SELFPAY ==
[2024-02-28 12:40] VITALS: BMI 24.0
--- NOTE | 2024-02-28 12:57 | ED.HEATRA ---
HPI - Head Injury General Time Seen by Provider: 12:57 Date Seen: 02/28/24 Chief complaint: Head Injury/Pain Stated complaint: hit head on car, heard a crack Time Seen by Provider: 02/28/24 12:49 Source: patient and RN notes reviewed Mode of arrival: ambulatory Limitations: no limitations History of Present Illness HPI Narrative: Mandy is a 53-year-old female coming in with concern of pain in her head above her right ear neck pain after falling Wednesday. Her foot slipped getting into a car, she actually hit her right head on the frame. She is had a history of cervical diskectomy and had surgery over 10 years ago for this. She has had neck pain since the injury. She has no pain going into her extremities, no numbness tingling in her arms. The neck pain is what is bothering her primarily. There was no loss of consciousness. She has been trying ibuprofen every 4 hours. She states she was not going to come in but her mom was so concerned, talked her into it. MD Complaint: head injury and other (neck pain) Related Data Home Medications Medication Instructions Recorded Confirmed epinephrine 0.3 mg/0.3 mL 0.3 mg IM DIRECTED 05/10/22 02/28/24 injection, auto-injector trazodone 100 mg tablet 100 mg PO HS 05/10/22 02/28/24 venlafaxine 150 mg 150 mg PO DAILY 05/10/22 02/28/24 capsule,extended release 24 hr venlafaxine 75 mg capsule,extended 75 mg PO DAILY 05/10/22 02/28/24 release 24 hr Previous Rx's Medication Instructions Recorded cyclobenzaprine 10 mg tablet 10 mg PO TID PRN muscle spasm #30 02/28/24 tabs Allergies Allergy/AdvReac Type Severity Reaction Status Date / Time bee pollen Allergy Severe Anaphylaxis Verified 02/28/24 12:44 [facility] Medical History Open fracture ankle, bimalleolar ?S82.843B - Displaced bimalleolar fracture of unspecified lower leg, initial encounter for open fracture type I or II (ICD-10) PVC's (premature ventricular contractions) ?I49.3 - Ventricular premature depolarization (ICD-10) WILMAN II (vulvar intraepithelial neoplasia II) ?N90.1 - Moderate vulvar dysplasia (ICD-10) ADD (attention deficit disorder) ?F98.8 - Other specified behavioral and emotional disorders with onset usually occurring in childhood and adolescence (ICD-10) Fibromyalgia ?M79.7 - Fibromyalgia (ICD-10) Chronic pain ?G89.29 - Other chronic pain (ICD-10) PTSD (post-traumatic stress disorder) ?F43.10 - Post-traumatic stress disorder, unspecified (ICD-10) History of alcohol abuse ?F10.11 - Alcohol abuse, in remission (ICD-10) Cervical radiculopathy at C7 ?M54.12 - Radiculopathy, cervical region (ICD-10) Depression ?F32.A - Depression, unspecified (ICD-10) Migraine ?G43.909 - Migraine, unspecified, not intractable, without status migrainosus (ICD-10) Tobacco use ?Z72.0 - Tobacco use (ICD-10) ADHD ?F90.9 - Attention-deficit hyperactivity disorder, unspecified type (ICD-10) Anxiety ?F41.9 - Anxiety disorder, unspecified (ICD-10) Surgical History Status post incision and drainage ?Z98.890 - Other specified postprocedural states (ICD-10) S/P ablation of ventricular arrhythmia ?Z98.890 - Other specified postprocedural states (ICD-10) ?Z86.79 - Personal history of other diseases of the circulatory system (ICD-10) History of loop electrical excision procedure (LEEP) ?Z98.890 - Other specified postprocedural states (ICD-10) History of colonoscopy ?Z98.890 - Other specified postprocedural states (ICD-10) History of cervical discectomy ?Z98.890 - Other specified postprocedural states (ICD-10) History of hysterectomy ?Z90.710 - Acquired absence of both cervix and uterus (ICD-10) History of appendectomy ?Z90.49 - Acquired absence of other specified parts of digestive tract (ICD-10) History of fusion of cervical spine ?Z98.1 - Arthrodesis status (ICD-10) Social History Narrative: She smokes cigarettes. She drinks 6 alcoholic beverages per week Smoking Status: Current every day smoker What tobacco products do you use: cigarettes Smoking packs per day: 1 Smoking cigarettes per day: 20.0 Do you use any of these nicotine containing products: None and Other Second hand tobacco smoke exposure: Yes How often do you have a drink containing alcohol: never How often do you have six or more drinks on one occasion: Never AUDIT-C Alcohol total score: 0 Non-prescribed substance use: marijuana (any form) Non-prescribed substance use details: smokes service: No Exam Const: Vital Signs, click to edit/add: Mandy is a 53-year-old female that is alert, interactive, no apparent distress. Ambulatory into the ED of her own accord. Pupils equal round reactive, sclera clear, symmetrical facial function, no traumatic change noted. She has no midline tenderness of her neck, has good range of motion of her neck, no paraspinous tenderness. There is no cervical adenopathy, no thyromegaly masses or nodules. She points to the area above her right ear where she hit her head, note no traumatic change there. Lungs are clear, good air entry, no wheezing crackles. CV regular rate and rhythm, no murmur. Upper extremities are symmetric with normal deltoids, biceps, symmetrical wrist and hand relish blender strength. Neurovascular is otherwise intact with normal sensation, hands are warm and normal vascularity noted. Documenting provider has reviewed patient's vital signs: yes Course Course ED Course: Discussed doing imaging. We will proceed with head CT and cervical spine CT. She is in agreement with this plan. Reevaluation(s) Time of Reevaluation #1: 14:01 Reevaluation #1: Have reviewed with Mandy her stable findings on her neck CT, no acute traumatic change. Head CT also showing no acute traumatic change. We discussed that she is essentially suffering from probable musculoskeletal issues in her neck, would consider this to be more of a whiplash syndrome for her. I do not think she needs any further imaging at this time. We discussed use of a muscle relaxant. She has tried tizanidine in the past, did not really help. Flexeril does give her some sedative properties which she would welcome at bedtime. We discussed cutting the tablets in half for 5 mg if needed during the day. [facility] - Head Injury Imaging Data CT scan - head: Attestation: I have reviewed the pertinent imaging results. Radiologist's impression: Patient: MANDY CONNOLLY Facility:?[facility] Patient ID:?[id number] Site Patient ID:?[id number]. Site :?1970 Study:?CT-Head W/O-02/28/2024 1:35:18 PM Ordering Physician:FANNY Final Report: INDICATION: Fall. Head injury, not otherwise described. COMPARISON: None available. TECHNIQUE: CT of the head without intravenous contrast. Please note that all CT scans at this facility use dose modulation, iterative reconstruction, and/or weight-based dosing when appropriate to reduce radiation dose to as low as reasonably achievable. FINDINGS: The brain is normal in attenuation with preserved ramos-white matter differentiation. No hydrocephalus. No mass or mass effect. No intracranial hemorrhage. Intact skull base and cranial vault. Visualized orbits are without significant incidental findings. Visualized paranasal sinuses and mastoid air cells are clear. The frontal sinuses are not pneumatized. IMPRESSION: No acute findings. Please note that all CT scans at this facility use dose modulation, iterative reconstruction, and/or weight-based dosing when appropriate to reduce radiation dose to as low as reasonably achievable. Dictated by Christian Duncan MD @ 02/28/2024 1:47:22 PM (Electronic Signature) CT cervical spine: Attestation: I have reviewed the pertinent imaging results. Radiologist's impression: Patient: MANDY CONNOLLY Facility:?[facility] Patient ID:?[id number] Site Patient ID:?[id number]. Site :?1970 Study:?CT-Spine Cervical W/O-02/28/2024 1:36:16 PM Ordering Physician:FANNY Final Report: INDICATION: Posttraumatic neck pain. COMPARISON: None available. Reference is made to a prior report dated 06/19/2022. TECHNIQUE: CT of the cervical spine without intravenous contrast. Please note that all CT scans at this facility use dose modulation, iterative reconstruction, and/or weight-based dosing when appropriate to reduce radiation dose to as low as reasonably achievable. FINDINGS: C5-C6 discectomy with an intervertebral disc spacing device. C6-C7 ACDF. Alignment: No significant spondylolisthesis, widening of the intervertebral disc spaces, interfacetal joints or interspinous distances. Vertebrae: Vertebral bodies, pedicles, laminae, articular, transverse and spinous processes are intact. Soft Tissues: No perivertebral edema or hemorrhage. Extraspinal Anatomy: No significant findings. IMPRESSION: No acute traumatic injury is identified. Please note that all CT scans at this facility use dose modulation, iterative reconstruction, and/or weight-based dosing when appropriate to reduce radiation dose to as low as reasonably achievable. Dictated by Christian Duncan MD @ 02/28/2024 1:51:50 PM (Electronic Signature) Discharge Plan Discharge Clinical Impression: Acute neck pain Closed head injury Qualifiers: Encounter type: initial encounter Qualified Code(s): S09.90XA - Unspecified injury of head, initial encounter Patient Disposition: Home, Self-Care Condition: Stable Instructions: Head Injury (ED), Neck Pain (ED) Additional Instructions: Can try ice or heat to your neck, use whichever feels better. Continue with Tylenol and ibuprofen per bottle directions as needed for baseline pain control. Have written for Flexeril which is a muscle relaxant, can use per prescription dosing. If you have further concerns, neck pain is not improving, follow up in primary care clinic for re-evaluation. Activity Level: Activity as Tolerated Prescriptions: New cyclobenzaprine 10 mg tablet 10 mg PO TID PRN (Reason: muscle spasm) Qty: 30 0RF No Action venlafaxine 75 mg capsule,extended release 24hr 75 mg PO DAILY venlafaxine 150 mg capsule,extended release 24hr 150 mg PO DAILY trazodone 100 mg tablet 100 mg PO HS epinephrine 0.3 mg/0.3 mL auto-injector 0.3 mg IM DIRECTED Follow Up/Referrals: Provider,Not a Local [Primary Care Provider] - Stand Alone Forms: [employer] Info Instructions
--- NOTE | 2024-02-28 13:06 | CT_ITS ---
Patient: MANDY CONNOLLY Facility:?[facility] Patient ID:?[id number] Site Patient ID:?[id number]. Site :?1970 Study:?CT-Spine Cervical W/O-02/28/2024 1:36:16 PM Ordering Physician:FANNY Final Report: INDICATION: Posttraumatic neck pain. COMPARISON: None available. Reference is made to a prior report dated 06/19/2022. TECHNIQUE: CT of the cervical spine without intravenous contrast. Please note that all CT scans at this facility use dose modulation, iterative reconstruction, and/or weight-based dosing when appropriate to reduce radiation dose to as low as reasonably achievable. FINDINGS: C5-C6 discectomy with an intervertebral disc spacing device. C6-C7 ACDF. Alignment: No significant spondylolisthesis, widening of the intervertebral disc spaces, interfacetal joints or interspinous distances. Vertebrae: Vertebral bodies, pedicles, laminae, articular, transverse and spinous processes are intact. Soft Tissues: No perivertebral edema or hemorrhage. Extraspinal Anatomy: No significant findings. IMPRESSION: No acute traumatic injury is identified. Please note that all CT scans at this facility use dose modulation, iterative reconstruction, and/or weight-based dosing when appropriate to reduce radiation dose to as low as reasonably achievable. Dictated by hCristian Duncan MD @ 02/28/2024 1:51:50 PM Signed by:?Christian Duncan MD @02/28/2024 1:51:50 PM (Electronic Signature)
--- NOTE | 2024-02-28 13:06 | CT_ITS ---
Patient: MANDY CONNOLLY Facility:?[facility] Patient ID:?[id number] Site Patient ID:?[id number]. Site :?1970 Study:?CT-Head W/O-02/28/2024 1:35:18 PM Ordering Physician:FANNY Final Report: INDICATION: Fall. Head injury, not otherwise described. COMPARISON: None available. TECHNIQUE: CT of the head without intravenous contrast. Please note that all CT scans at this facility use dose modulation, iterative reconstruction, and/or weight-based dosing when appropriate to reduce radiation dose to as low as reasonably achievable. FINDINGS: The brain is normal in attenuation with preserved ramos-white matter differentiation. No hydrocephalus. No mass or mass effect. No intracranial hemorrhage. Intact skull base and cranial vault. Visualized orbits are without significant incidental findings. Visualized paranasal sinuses and mastoid air cells are clear. The frontal sinuses are not pneumatized. IMPRESSION: No acute findings. Please note that all CT scans at this facility use dose modulation, iterative reconstruction, and/or weight-based dosing when appropriate to reduce radiation dose to as low as reasonably achievable. Dictated by Christian Duncan MD @ 02/28/2024 1:47:22 PM Signed by:?Christian Duncan MD @02/28/2024 1:47:22 PM (Electronic Signature)
--- OUTSIDE RECORDS SUMMARY | 2024-02-28 13:37 | XMS_ITS | Continuity of Care Document ---
Author Name Unknown Organization [facility] Address [address] [place] [address] Phone Care Team Providers Care Marketing Operations Intern Name Role Phone Will Pawan KIM Unavailable Unavailabl e Advance Directives Directive Yes / No Effective Date File Name No Information Encounters Encounter Description Practice Location Reason(s) For Visit Diagnoses Date Provider Providers Copied on Encounter [facility], [address] [place] [address], [id number], [place] tel:[phone] [facility] [place] No Information Will Pawan. [address] [facility] [place], [place], [id number], [place]. tel:[phone] Family History Family Member Type Diagnosis Age At Onset No Information Payers Payer name Insurance type Covered libertarian ID Authoriza tion(s) No Information Social History Type Description Quantity Date Captured Comments Sex Female Smoking Status No Information Chief Complaint And Reason For Visit No Information Reason For Referral Reason For Referral No Information History Of Present Illness Encounter Date Complaint History Of Prese nt Illness No Information Functional Status Date Functional Assessmen t No Information Instructions Date Instruction Additional Infor mation No Information Assessments Type Assessment Date No Information Patient Care Teams Name Effective Dates (start - stop) Status Members No Information
--- OUTSIDE RECORDS SUMMARY | 2024-02-28 13:37 | XMS_ITS | Clinical Summary ---
Author Name Unknown Organization [facility] Address [place], [place] [address] Care Team Providers Care Electrical Maintenance Engineer Name Role Phone Becky Laughlin MD Primary Care Provider Allergies Active Allergy Reactions Criticality Noted Date Comments Bee Pollen *Unknown 07/26/2022 Venom-Honey Bee Anaphylaxis High 09/02/2012 Medications Medication Sig Dispensed Refills Start Date End Date Status EPINEPHRINE (EPIPEN 2-JASON IM) Inject intramuscular each time if needed. Active cloNIDine (KAPVAY) 0.1 mg 12HR extended release tabletIndications:P osttraumatic stress disorder,History of attention deficit hyperactivity disorder (ADHD) Take 1 tablet (0.1 mg) by mouth at bedtime for 7 days, THEN take 1 tablet twice daily 60 Tablet 2 07/26/2023 Active traZODone (DESYREL) 50 mg tabletIndications:M ajor depressive disorder, recurrent, moderate (HC),Posttraumatic stress disorder,Insomnia due to mental condition Take 1-2 Tablets (50-100 mg) by mouth at bedtime if needed for Sleep. 180 Tablet 3 09/01/2023 Active cloNIDine HCL (CATAPRES) 0.2 mg tabletIndications:P osttraumatic stress disorder,Generalize d anxiety disorder,Insomnia due to mental condition Take 0.5-1 Tablets (0.1-0.2 mg) by mouth 2 times daily if needed (anxiety or sleep). Wait 1 hour between doses. Further refills will be prescribed during an appointment 60 Tablet 2 09/01/2023 Active venlafaxine (EFFEXOR XR) 75 mg cp24 Extended-Release capsuleIndications: Major depressive disorder, recurrent, moderate (HC),Posttraumatic stress disorder,Generalize d anxiety disorder Take 1 Capsule (75 mg) by mouth once daily with a meal. In addition to a 150 mg tablet for a total of 225 mg daily. Further refills will be prescribed during an appointment 90 Capsule 1 01/05/2024 Active venlafaxine (EFFEXOR XR) 150 mg Extended-Release capsuleIndications: Major depressive disorder, recurrent, moderate (HC),Posttraumatic stress disorder,Generalize d anxiety disorder Take 1 Capsule (150 mg) by mouth once daily with a meal. 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 female 9 weeks s/p I&D, ORIF right ankle. Patient stable and doing well. 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 Degroot March 2018. January 2021 monitor 6.8% PVC burden. Has been on Toprol XL 25 mg daily. Does not want additional medications 03/19/2021 status post repeat ablation for 2 separate PVCs from the LV. Toprol XL reduced to 12.5 mg PO daily S/P cervical spinal fusion 12/09/2017 WILMAN II (vulvar intraepithelial neoplasia II) 08/2016 Cervical radiculopathy at C7 08/29/2012 Major depressive disorder, recurrent, moderate 0 02/21/2010 Fibromyalgia 02/17/2010 Tobacco use disorder 03/14/2008 Migraine, unspecified, witho ut mention of intractable migraine without mention of status migrainosus 03/14/2008 History of attention deficit hyperactivity disor atul (ADHD) 01/31/2007 Generalized anxiety disorder 01/31/2007 Resolved Problems Problem Noted Date Diagnosed Date Resolved Date Controlled substance agreement signed 07/30/2021 07/26/2023 Controlled substance agreement signed 04/28/2017 07/26/2023 Overview: [facility] 04/26/17 ANTONINA Luke................04/28/2017 3:11 PM 90 day reminder has been signed by pt Pain medication agreement 10/30/2013 Overview: Pain contract initiated with Rashmi Marks AD OPERATIONS SPECIALIST at [facility] on 10/25/2013. Tierra Bernal .................... 10/30/2013 4:09 PM Major depressive disorder, r ecurrent episode, in partial or unspecified remission 01/31/200704/11 Encounters Date Type Department Care Team Description 01/04/2024 Refill [facility] [address] [place] [address] Josh Mtz MD Refill Request (Venlafaxine, Venlafaxine) from Last 3 Months Immunizations Name Administration Dates Next Due DT (Age < 7 years) 05/29/1980 DTP 04/25/1974 Hepatitis B (Peds) 12/14/2002,07/06/2002, 002 Influenza A (H1N1), Live Intranasal 09/17/2009 Influenza Virus, Unspecified 09/23/2019, 07/26/2012,07/29/2011,2009,11/23/2008 Influenza, IIV3 (Age 6-35 mos) 07/26/2012,2010 Influenza, IIV3 (Age >=3 years) 10/02/2010 Influenza, IIV4 11/26/2017,11/18/2016 Influenza, Injectable, Mdck, Quadrivalent, W/preservative 09/23/2019 Influenza,LAIV4 Live Intrana john (Flumist) 07/12/2013 MMR 10/25/1973 Oral Polio Vaccine 05/29/1980,04/25/1974, 973 Td (Age >=7 Years) 12/02/2010 Td, Preservative Free (age > = 7 Years) 08/16/2002 Tdap 03/31/2019,12/03/2010 Tuberculin Skin Test, Unspecified 07/19/1973 Family History Medical History Relation Name Comments Good Health Father Good Health Mother Cancer-breast Other maternal and p aternal cousins Other Other paternal cousin s with ADD, anxiety and depression Cancer-breast Paternal Aunt Cancer-breast Paternal Grandmother Relation Name Status Comments Father Mother Other Paternal Aunt Paternal Grandmother Social History Tobacco Use Types Packs/Day Years Used Date Smoking Tobacco: Every Day Cigarettes Last attempted to quit: 12/10/2015 Smokeless Tobacco: Never Tobacco Cessation:Ready to Q uit: Not Asked; Counseling Given: Not Answered Comments:half to a full pack a day Alcohol Use Standard Drinks/Week Comments Not Currently 0 (1 standard drink = 0.6 oz pure alcohol) No alcohol for 2 months -08/31/23 PHQ-2 Answer Date Recorded PHQ-2 TOTAL SCORE 2 09/01/2023 Social Connections Answer Date Recorded Frequency of Communication with Friends and Fami ly Not on file 02/08/2023 Alcohol Use Answer Date Recorded How often do you have a drink containing alcohol ? 1 01/05/2023 How many drinks containing a lcohol do you have on a typical day when you are drinking? 0 01/05/2023 How often do you have five or more drinks on one occasion? 1 01/05/2023 Financial Resource Strain Answer Date R ecorded Difficulty of Paying Living Expenses 3 02/05/2022 Difficulty of Paying Living Expenses Not on file 02/05/2022 Food Insecurity Answer Date Recorded Worried About Running Out of Food in the Last Ye ar 1 02/05/2022 Transportation Needs Answer Date Record ed Lack of Transportation (Medical) 1 02/05/2022 Housing Stability Answer Date Recorded Unable to Pay for Housing in the Last Year 1 02/05/2022 Education Answer Date Recorded What is the highest level of school you have completed or the highest degree you have received? Associate degree: occupational, technical, or vocational program 04/24/2022 Sex and Gender Information Value Date Recorded Sex Assigned at Female 12/19/2021 12:08 AM IOS ARCHITECT Gender Identity Female 06/23/2021 11:27 AM CDT Sexual Orientation Straight 06/23/2021 11 :27 AM CDT Obstetrics History Para Term AB IAB SAB Ectopic Multiple Livin g Live Births 1 Date Outcome GA Total Labor Labor/2nd/3rd Weight Sex Delivery Anes PTL Pilar A1 A5 Name Cl in Term Last Filed Vital Signs Vital Sign Reading Time Taken Comments Blood Pressure 146/96 09/19/2023 6:30 PM IOS ARCHITECT Pulse 78 09/19/2023 6:30 PM IOS ARCHITECT Temperature 36.6 ??C (97.8 ??F) 09/19/2023 6:20 PM CS T Respiratory Rate 16 09/19/2023 6:20 PM IOS ARCHITECT Oxygen Saturation 97% 09/19/2023 6:30 PM IOS ARCHITECT Inhaled Oxygen Concentration - - Weight 60.5 kg (133 lb 6.4 oz) 09/19/2023 6:20 P M IOS ARCHITECT Height 162.6 cm (5' 4) 09/19/2023 6:20 PM IOS ARCHITECT Body Mass Index 22.9 09/19/2023 6:20 PM IOS ARCHITECT Plan of Treatment Health Maintenance Due Date Last Done Comments Pneumococcal series for age 6-64 (1 of 2 - PCV) 1978 HIV for age 15-65 1987 Hepatitis C screening for ag e 18-79 1990 Colonoscopy through age 75 2017 Zoster (shingles) series for age 50+ (1 of 2) 2022 Mammogram for age 45-75 12/11/2022 12/11/2021 COVID-19 vaccine series ( - 2022- season) 2023 BMI (ht and wt on same day) for age 18+ 03/22/2024 03/22/2023, 01/05/2023, 07/31/2022, Additional history exists Influenza for age 50-64 06/11/2024 09/23/20 19, 09/23/2019, 11/26/2017, Additional history exists Depression screening for age 12+ 09/01/2024 09/01/2023, 08/11/2023, 07/29/2023, Additional history exists Lipids for age 45-75 10/24/2026 10/24/2021 Tetanus booster 03/31/2029 03/31/2019, 11/12, 12/02/2010, Additional history exists Tdap Completed 03/31/2019, 12/03/2010 Medical Devices Implanted Type Area Ultrasound Tech Device Identifier Shelf Expiration Date Model / Serial / Lot [id number] utty Progenix Dbm 0.5cc [[id number]] Implanted:Qty: 1 on 09/02/2012 at [facility] Explanted:at [facility] (Quantity not on file) Spine SPINAL GRAFT 02/25/2014 [id number]# / [id number] / Plate 21mm 1-Level Cerv - [id number] Implanted:Qty: 1 on 09/02/2012 by Ashley Hinojosa MBChB at [facility] N/A: Cervical Vertebrae [id number] / / Screw Slf Drilling 4.0x13 Deib - [id number] Implanted:Qty: 4 on 09/02/2012 by Ashley Hinojosa MBChB at [facility] N/A: Cervical Vertebrae [id number] / / Procedures Procedure Name Priority Date/Time Associated Diagnosis Comments XR MAMMO BILAT SCREENING Routine 12/11/2021 11:22 AM IOS ARCHITECT Visit for screening mammogram LIPID PANEL W REFLEX MEASURED LDL Routine 10/24/2021 11:09 AM IOS ARCHITECT Lipid screening from Last 3 Months or Most Recently Relevant to Health Maintenance Results * XR MAMMO BILAT SCREENING (12/11/2021 11:22 AM IOS ARCHITECT) Anatomical Region Laterality Modality BREASTS, Breast Left, Breast Right Bilateral Mammography Impressions 12/17/2021 6:38 AM IOS ARCHITECT ??There is no radiographic evidence for malignancy. ??Recommend annual mammograms. MAMMOGRAM ASSESSMENT: ??ACR 1 Negative PATIENTS: You will also receive a letter with your examination results in an easy to read format. ??If you have questions about your results, please contact your referring provider. Narrative 12/17/2021 6:38 AM IOS ARCHITECT For Patients: As a result of the Century Cures Act, medical imaging exams and procedure reports are released immediately into your electronic medical record. You may view this report before your referring provider. If you have questions, please contact your health care provider. XR MAMMO BILAT SCREENING [[id number]] CLINICAL HISTORY: ??This is an asymptomatic 51 y.o. patient. INDICATION FOR EXAM: Mammogram Screening. TECHNIQUE: CC & MLO views were obtained. ??This study was evaluated with the assistance of Computer-Aided Detection. COMPARISON FILM: Yes 07/21/18 Outside Facility 07/16/17 Outside Facility FINDINGS: ??The breasts are heterogeneously dense, which may obscure small masses. There are no dominant masses, suspicious micro calcifications or areas of architectural distortion. Becky Laughlin MD MAMMO * (ABNORMAL) LIPID PANEL W REFLEX MEASURED LDL (10/24/2021 11:09 AM IOS ARCHITECT) CHOLESTEROL,TOTAL 276(H) 100 - 199 mg/dL 10/24/2021 4:[address] [facility] TRIGLYCERIDES 100 <150 mg/dL 10/24/2021 4:11 PM [facility] HDL CHOLESTEROL 60 >40 mg/dL 4:11 PM [facility] NON-HDL CHOLESTEROL 216(H) <145 mg/dl 10/24/2021 4:11 PM [facility] CHOL/HDL RATIO 4.60(H) <4.50 10/24/2021 4:11 PM [facility] LDL CHOLESTEROL 196(H) <=130 mg/dL 10/24/2021 4:11 PM [facility] VLDL CHOLESTEROL 20 <=30 mg/dL 10/24/2021 4:11 PM [facility] PROVIDER ORDERED STATUS RANDOM 10/24/2021 4:11 PM [facility] Blood BLOOD SPECIMEN / Unknown Venipuncture / Unknown 10/24/2021 11:09 AM IOS ARCHITECT 10/24/2021 11:09 AM IOS ARCHITECT Becky Laughlin MD CHEMISTRY [facility] [address] [place] [address], [place] from Last 3 Months or Most Recently Relevant to Health Maintenance Advance Directives * Full Code (Latest Code Status on File) Date Activated Date Inactivated Comments 03/19/2021 9:59 AM 03/20/2021 12:07 PM Question Answer Comments Code Status Discussion: Other (specify in commen ts): * Full Code Date Activated Date Inactivated Comments 01/28/2016 7:35 AM 01/28/2016 2:14 PM * Full Code Date Activated Date Inactivated Comments 09/02/2012 5:15 PM 09/03/2012 2:23 PM * Full Code Date Activated Date Inactivated Comments 09/02/2012 11:32 AM 09/02/2012 5:15 PM Care Teams Electrical Maintenance Engineer Relationship Specialty Start Date End Date Becky Laughlin MD [address] [place] [address] PCP - General Family Practice 07/30/21
== END 2024-02-28 14:15 | disposition home or self-care (01) ==
PROVIDERS: Emergency Provider Family Medicine
DX: S09.90XA Unspecified injury of head, initial encounter (principal); M54.2 Cervicalgia; W18.30XA Fall on same level, unspecified, initial encounter
CPT/HCPCS: 70450; 72125; 99283; 99284; 99285

== ENCOUNTER 2024-08-17 08:26 | Emergency (ER) | payer MEDICARE, SELFPAY ==
[2024-08-17 08:30] VITALS: BP 129/92; PULSE 94; RESP 16; TEMP 36.5; O2SAT 99; BMI 22.3
--- NOTE | 2024-08-17 08:36 | ED_ITS ---
HPI - General Adult General Time Seen by Provider: 08:37 Date Seen: 08/17/24 Chief complaint: Dizziness/Vertigo Stated complaint: Dizzy Time Seen by Provider: 08/17/24 08:28 Source: patient, EMS and RN notes reviewed Mode of arrival: EMS Limitations: no limitations History of Present Illness HPI narrative: This 53-year-old female breath ambulance in from her home due to illness. Since Wednesday knee she has had a global headache without any visual changes, has felt dizzy your unsteady at times. She has felt feverish chin hot, has not actually checked her temperature but has felt hot. She will have chills. She does smoke baseline, no increased cough from baseline smoker's cough per her report. No concern for arrhythmias. She has had diarrhea, probably nonbloody but her toilet bowl is very jesus. She has had lower abdominal cramping. She does not feel like she has been keeping up with fluids or eating, has decreased appetite. She has had nausea at times but not right now, no vomiting. She gets lower abdominal pain with eating and then will have diarrhea. She does have chickens. Today when she was feeding the chickens, felt unsteady like she could possibly fall over. She does not feel a spinning sensation. She states people around her have been healthy, no known ill contacts. She feels she has maybe gotten 6 hours of sleep since Wednesday, her body just aches at night, there is low back pain with this. She denies any change in urinary symptoms. Related Data Home Medications ?Medication ?Instructions ?Recorded ?Confirmed epinephrine 0.3 mg/0.3 mL 0.3 mg IM DIRECTED 05/10/22 08/17/24 injection, auto-injector trazodone 100 mg tablet 50 mg PO HS 05/10/22 08/17/24 venlafaxine 150 mg 150 mg PO DAILY 05/10/22 08/17/24 capsule,extended release 24 hr venlafaxine 75 mg capsule,extended 75 mg PO DAILY 05/10/22 08/17/24 release 24 hr Previous Rx's ?Medication ?Instructions ?Recorded cyclobenzaprine 10 mg tablet 10 mg PO TID PRN muscle spasm #30 08/17/24 tabs ketorolac 10 mg tablet 10 mg PO Q6H PRN pain #20 tabs 08/17/24 ondansetron 4 mg disintegrating 4 mg PO Q6H PRN nausea and 08/17/24 tablet vomiting #20 tabs Allergies Allergy/AdvReac Type Severity Reaction Status Date / Time bee pollen Allergy Severe Anaphylaxis Verified 02/28/24 12:44 Review of Systems Status of ROS: Reports: 6 or more systems reviewed and unremarkable except as noted in History and below [facility] Medical History Open fracture ankle, bimalleolar ?S82.843B - Displaced bimalleolar fracture of unspecified lower leg, initial encounter for open fracture type I or II (ICD-10) PVC's (premature ventricular contractions) ?I49.3 - Ventricular premature depolarization (ICD-10) WILMAN II (vulvar intraepithelial neoplasia II) ?N90.1 - Moderate vulvar dysplasia (ICD-10) ADD (attention deficit disorder) ?F98.8 - Other specified behavioral and emotional disorders with onset usually occurring in childhood and adolescence (ICD-10) Fibromyalgia ?M79.7 - Fibromyalgia (ICD-10) Chronic pain ?G89.29 - Other chronic pain (ICD-10) PTSD (post-traumatic stress disorder) ?F43.10 - Post-traumatic stress disorder, unspecified (ICD-10) History of alcohol abuse ?F10.11 - Alcohol abuse, in remission (ICD-10) Cervical radiculopathy at C7 ?M54.12 - Radiculopathy, cervical region (ICD-10) Depression ?F32.A - Depression, unspecified (ICD-10) Migraine ?G43.909 - Migraine, unspecified, not intractable, without status migrainosus (ICD-10) Tobacco use ?Z72.0 - Tobacco use (ICD-10) ADHD ?F90.9 - Attention-deficit hyperactivity disorder, unspecified type (ICD-10) Anxiety ?F41.9 - Anxiety disorder, unspecified (ICD-10) Surgical History Status post incision and drainage ?Z98.890 - Other specified postprocedural states (ICD-10) S/P ablation of ventricular arrhythmia ?Z98.890 - Other specified postprocedural states (ICD-10) ?Z86.79 - Personal history of other diseases of the circulatory system (ICD- 10) History of loop electrical excision procedure (LEEP) ?Z98.890 - Other specified postprocedural states (ICD-10) History of colonoscopy ?Z98.890 - Other specified postprocedural states (ICD-10) History of cervical discectomy ?Z98.890 - Other specified postprocedural states (ICD-10) History of hysterectomy ?Z90.710 - Acquired absence of both cervix and uterus (ICD-10) History of appendectomy ?Z90.49 - Acquired absence of other specified parts of digestive tract (ICD- 10) History of fusion of cervical spine ?Z98.1 - Arthrodesis status (ICD-10) Social History Narrative: She smokes cigarettes. She drinks 6 alcoholic beverages per week Smoking Status: Current every day smoker What tobacco products do you use: cigarettes Smoking packs per day: 1 Smoking cigarettes per day: 20.0 Do you use any of these nicotine containing products: None and Other Second hand tobacco smoke exposure: Yes How often do you have a drink containing alcohol: never How often do you have six or more drinks on one occasion: Never AUDIT-C Alcohol total score: 0 Non-prescribed substance use: marijuana (any form) Non-prescribed substance use details: smokes service: No Exam Const: Vital Signs, click to edit/add: Vital Signs - 24 hr 08/17/24 08:30 08/17/24 08:45 08/17/24 08:52 Temperature 97.7 F Pulse Rate [Pulse Oximeter] 94 Pulse Rate [orthos tatic sitting] 94 Pulse Rate [orthos tatic standing] 99 Respiratory Rate 16 Blood Pressure [Ri ght Upper Arm] 129/92 H Blood Pressure [or thostatic sitting] 129/92 H Blood Pressure [or thostatic standing ] 127/91 H Pulse Oximetry 99 99 Oxygen Delivery Me thod Room Air Sonia is a very pleasant 53-year-old female that sitting up in bed, alert, interactive, no apparent distress. Pupils are equal and round, extraocular muscles intact, no nystagmus noted. TMs canals appear normal. Symmetrical facial function, oropharynx was slightly dry mucosa but no exudates or erythema. Speech is normal. Neck supple, no adenopathy, no jugular venous distension. She is able sit up, lungs are clear, good air entry, no wheezing or crackles. CV regular rate and rhythm, no murmur, normal S1-S2, no S3-S4. Abdomen is soft, nondistended, complaint of mild lower abdominal tenderness without any rebound or guarding, no underlying masses or organomegaly noted. Strength is 5 5 and symmetric throughout upper and lower extremities. Normal [id number], normal light touch sensation. No tremors noted. Skin warm and dry, skin visualized without any rash. Documenting provider has reviewed patient's vital signs: yes Course Course ED Course: Will initiate 500 mL IV fluids in Toradol for her discomfort. She is having no nausea right now but will give Zofran if this does happen. Will get full complement of labs, nursing staff is checking triple viral swab. This sounds like it is some type of viral illness. Need to consider potentially doing stool cultures given she does have chickens. We will see how she feels after fluids. Given the systemic symptoms, doubt this is neurologic in certainly points more towards an illness. Nursing staff did do orthostatics and she has no orthostatic changes on arrival. Reevaluation(s) Time of Reevaluation #1: 09:39 Reevaluation #1: Have reviewed with patient that she does have COVID. Do not feel that we need a urinalysis at this time. Have discussed with her Paxlovid, went over this medicine, went over side effects, went over indications. She is declining taking this at this time. She will hopefully improve with her symptoms within the next few days to next week. We discussed conservative management. I will send in some Toradol and muscle relaxant for her, some Zofran to help with symptoms. She wanted to know with a chance of lung COVID is for her, reviewed with her that I have no way of knowing that. Vital Signs Vital signs: Initial Vital Signs Temperature 97.7 F 08/17/24 08:30 Temperature Source Temporal Artery Scan 08/17/24 08:30 Pulse Rate 94 08/17/24 08:30 Respiratory Rate 16 08/17/24 08:30 Blood Pressure 129/92 H 08/17/24 08:30 Blood Pressure Mean 104 08/17/24 08:30 Blood Pressure Position Sitting 08/17/24 08:30 Pulse Oximetry 99 08/17/24 08:30 Oxygen Delivery Method Room Air 08/17/24 08:30 Vital Signs Temperature 97.7 F 08/17/24 08:30 Pulse Rate 94 08/17/24 08:30 Respiratory Rate 16 08/17/24 08:30 Blood Pressure 129/92 H 08/17/24 08:30 Pulse Oximetry 99 08/17/24 08:30 Oxygen Delivery Method Room Air 08/17/24 08:30 Temperature 97.7 F 08/17/24 08:30 Pulse Rate 94 08/17/24 08:52 Respiratory Rate 16 08/17/24 08:30 Blood Pressure 129/92 H 08/17/24 08:52 Pulse Oximetry 99 08/17/24 08:45 Oxygen Delivery Method Room Air 08/17/24 08:30 Medications Administered Medications: Generic Name Dose Route Start Last Admin Trade Name Freq PRN Reason Stop Dose Admin Sodium Chloride 500 mls @ 500 mls/hr 08/17/24 08:44 08/17/24 08:53 0.9 % Sodium Chloride 500 Ml IV 08/17/24 09:43 500 mls/hr .Q1H ONE Administration Discontinued Medications Generic Name Dose Route Start Last Admin Trade Name Freq PRN Reason Stop Dose Admin Ketorolac Tromethamine 15 mg 08/17/24 08:44 08/17/24 08:54 Ketorolac 15 Mg/Ml Inj IVP 08/17/24 08:45 15 mg ONCE ONE Administration Medical Decision Making Lab Data Lab results reviewed: Yes I reviewed the patient's lab results Labs: Lab Results 08/17/24 08/17/24 Range/Units 08:35 08:55 WBC 8.52 (4.50-11.00) K/uL RBC 4.96 (4.00-5.20) m/uL Hgb 14.9 (12.0-16.0) gm/dL Hct 44.5 (33.0-51.0) % MCV 90 (80-100) fL MCH 30 (26-34) pg MCHC 34 (32-36) gm/dL RDW Coeff of Debi 13.2 (11.5-15.5) % Plt Count 214 (140-440) K/uL Neut % (Auto) 72.5 H (42.0-72.0) % Lymph % (Auto) 17.7 L (20-44) % [place] % (Auto) 7.2 (0.0-11.0) % Eos % (Auto) 2.1 (0.0-7.0) % Baso % (Auto) 0.4 (0.0-3.0) % Neut # (Auto) 6.20 (1.7-7.0) K/uL Lymph # (Auto) 1.50 (0.90-2.90) K/uL [place] # (Auto) 0.60 (0.00-0.90) K/UL Eos # (Auto) 0.18 (0.00-0.50) K/uL Baso # (Auto) 0.03 (0.00-0.30) K/uL Abs Immat Gran (auto) 0.01 (0.00-0.30) K/uL Imm/Tot Granulo (auto) 0.1 % Sodium 135 (135-149) mmol/L Potassium 3.5 L (3.6-5.1) mmol/L Chloride 100 (96-114) mmol/L Carbon Dioxide 26 (20-32) mmol/L Anion Gap 9 (7-15) mEq/L BUN 11 (7-30) mg/dL Creatinine 0.7 (0.5-1.5) mg/dL Estimated Creat Clear 82.10 Estimated GFR 105 ml/min Glucose 101 (60-115) mg/dL Lactate 1.2 (0.5-1.9) mmol/L Calcium 9.3 (8.4-10.6) mg/dL Total Bilirubin 0.2 (0.1-1.5) mg/dL AST 26 (12-35) U/L ALT 18 (4-35) U/L Alkaline Phosphatase 98 (40-150) U/L C-Reactive Protein < 0.5 L (0.5-1.0) mg/dL Total Protein 7.6 (6.0-8.3) g/dL Albumin 4.4 (3.3-5.0) g/dL SARS-CoV-2 (PCR) POSITIVE SARS-CoV-2 A (Negative) Influenza Type A (PCR) Negative PCR FLU A (Negative) Influenza Type B (PCR) Negative PCR FLU B (Negative) RSV (PCR) Negative PCR RSV (Negative) Discharge Plan Discharge Clinical Impression: COVID-19 Instructions: COVID-19 (Coronavirus Disease 2019) (ED), Social Distancing Guidelines for COVID-19 (ED) Additional Instructions: Stay hydrated, drink small frequent sips of fluids. Your symptoms will improve over the next few days to the next week. If you are not improving within the next week, have concerns for worsening or feel you need re-evaluation, please return for recheck. I have sent a prescription in for Toradol, avoid ibuprofen while you are on this. Can certainly use Tylenol for extra pain control. Also sent in Zofran and a muscle relaxant to help with her symptoms. Some people with COVID do get insomnia, it is common to have GI symptoms like diarrhea with COVID. These will also hopefully improve as you feel better. Activity Level: Activity as Tolerated Discharge Diet: Regular Prescriptions: New ondansetron 4 mg tablet,disintegrating 4 mg PO Q6H PRN (Reason: nausea and vomiting) Qty: 20 0RF ketorolac 10 mg tablet 10 mg PO Q6H PRN (Reason: pain) Qty: 20 0RF Rx Instructions: maximum total duration of 5 days from all oral, intranasal, or parenteral formulations cyclobenzaprine 10 mg tablet 10 mg PO TID PRN (Reason: muscle spasm) Qty: 30 0RF No Action venlafaxine 75 mg capsule,extended release 24hr 75 mg PO DAILY venlafaxine 150 mg capsule,extended release 24hr 150 mg PO DAILY trazodone 100 mg tablet 50 mg PO HS epinephrine 0.3 mg/0.3 mL auto-injector 0.3 mg IM DIRECTED Follow Up/Referrals: Provider,Not a Local [Primary Care Provider] - Stand Alone Forms: [employer] Info Instructions
[2024-08-17 08:45] VITALS: O2SAT 99
[2024-08-17 08:52] VITALS: BP 127/91; BP 129/92; PULSE 94; PULSE 99
[2024-08-17] MEDS: 0.9 % SODIUM CHLORIDE 500 ML 500 ML IV (08:53)
[2024-08-17] MEDS: KETOROLAC 15 MG/ML inj IVP (08:54)
[2024-08-17 09:08] LABS: Lactate* 1.2 mmol/L (0.5-1.9)
[2024-08-17 09:10] LABS: Basophils Absolute Auto 0.03 K/uL (0.00-0.30); Basophils Percent Auto 0.4 % (0.0-3.0); Eosinophils Absolute Auto 0.18 K/uL (0.00-0.50); Eosinophils Percent Auto 2.1 % (0.0-7.0); Hematocrit 44.5 % (33.0-51.0); Hemoglobin* 14.9 gm/dL (12.0-16.0); Immature Granulocytes Abs Auto 0.01 K/uL (0.00-0.30); Immature Granulocytes Pct Auto 0.1 %; Lymphocytes Percent Auto 17.7 % (20-44); Mean Corpuscular HGB Conc 34 gm/dL (32-36); Mean Corpuscular Hemoglobin 30 pg (26-34); Mean Corpuscular Volume 90 fL (80-100); Monocytes Percent Auto 7.2 % (0.0-11.0); Neutrophils Percent Auto 72.5 % (42.0-72.0); Platelet Count* 214 K/uL (140-440); RDW Coefficient of Variation % 13.2 % (11.5-15.5); Red Blood Count 4.96 m/uL (4.00-5.20); White Blood Count* 8.52 K/uL (4.50-11.00)
[2024-08-17 09:12] LABS: Slide Review Reflex No
[2024-08-17 09:25] LABS: PCR FLU A Negative PCR FLU A (Negative); PCR FLU B Negative PCR FLU B (Negative); PCR RSV Negative PCR RSV (Negative); SARS PCR* POSITIVE SARS-CoV-2 (Negative)
[2024-08-17 09:26] LABS: Albumin* 4.4 g/dL (3.3-5.0); Chloride* 100 mmol/L (96-114)
[2024-08-17 09:27] LABS: Potassium* 3.5 mmol/L (3.6-5.1); Sodium* 135 mmol/L (135-149)
[2024-08-17 09:29] LABS: Bilirubin Total* 0.2 mg/dL (0.1-1.5); Creatinine* 0.7 mg/dL (0.5-1.5); Estimated Glomerular Filt Rate 105 ml/min
[2024-08-17 09:30] LABS: Alanine Aminotransferase* 18 U/L (4-35); Alkaline Phosphatase* 98 U/L (40-150); Anion Gap 9 mEq/L (7-15); Aspartate Amino Transferase* 26 U/L (12-35); Blood Urea Nitrogen* 11 mg/dL (7-30); Calcium* 9.3 mg/dL (8.4-10.6); Carbon Dioxide* 26 mmol/L (20-32); Glucose* 101 mg/dL (60-115); Total Protein* 7.6 g/dL (6.0-8.3)
[2024-08-17 09:33] LABS: C Reactive Protein* < 0.5 mg/dL (0.5-1.0)
== END 2024-08-17 09:53 | disposition home or self-care (01) ==
PROVIDERS: Emergency Provider Family Medicine
DX: U07.1 COVID-19 (principal)
CPT/HCPCS: 36415; 80053; 81001; 83605; 85025; 86140; 87631; 94761; 96374; 99284; J1885; J7030